=== PATIENT | male | born 1960 | race Caucasian/White ===

== ENCOUNTER 2017-01-14 07:03 | Emergency (ER) | payer BC ==
[2017-01-14] MEDS ORDERED: Sodium Chloride 0.9% 1,000 ML IV ONE (07:33)
[2017-01-14] MEDS ORDERED: Sodium Chloride 0.9% 10 ML Syringe FLUSH PRN (07:34)
[2017-01-14] MEDS ORDERED: Sodium Chloride 0.9% 2.5 ML Syringe FLUSH PRN (07:34)
[2017-01-14] MEDS ORDERED: Nitroglycerin 0.4 MG Tab.SL SL PRN ×2 (07:35→08:00)
--- NOTE | 2017-01-14 07:36 | EDM.PDOC ---
ED HPI GI/ABDOMINAL - General Chief Complaint: Abdominal Pain Stated Complaint: CHEST PAINS Time Seen by Provider: 01/14/17 07:46 Source of Information: Reports: Patient History Limitations: Reports: No limitations - History of Present Illness INITIAL COMMENTS - FREE TEXT/NARRATIVE: History of present illness: [] At 6:00 this morning patient took his normal morning meds and started having severe epigastric pain is described as pressure and radiating to his chest. He denies any shortness of breath, dizziness, sweating, coughing, nausea or vomiting. The pain is constant and slowly subsiding. Review of systems: As per history of present illness and below otherwise all systems reviewed and negative. Past medical history: As per history of present illness and as reviewed below otherwise noncontributory. Surgical history: As per history of present illness and as reviewed below otherwise noncontributory. Social history: No reported history of drug or alcohol abuse. Family history: As per history of present illness and as reviewed below otherwise noncontributory. Physical exam: General: Well developed, well nourished in NAD HEENT: Atraumatic, normocephalic, pupils reactive, negative for conjunctival pallor or scleral icterus, mucous membranes moist, throat clear, neck supple, nontender, trachea midline. Lungs: Clear to auscultation, breath sounds equal bilaterally, chest nontender. Heart: S1S2, regular, negative for clicks, rubs, or JVD. Abdomen: Soft, nondistended, nontender. Negative for masses or hepatosplenomegaly. Negative for costovertebral tenderness. Pelvis: Stable nontender. Genitourinary: Deferred. Rectal: Deferred. Extremities: Atraumatic, negative for cords or calf pain. Neurovascular unremarkable. Neuro: Awake, alert, oriented. Cranial nerves II through XII unremarkable. Cerebellum unremarkable. Motor and sensory unremarkable throughout. Exam nonfocal. Diagnostics: [] Labs and x-rays were checked which were all negative. Therapeutics: [] 2 is given nitroglycerin with minimal relief and a GI cocktail which alleviated all his pain Impression: [] Esophageal spasm Plan: [] Maalox for pain, followup PMD Definitive disposition and diagnosis as appropriate pending reevaluation and review of above. - Related Data Allergies/ADRs: Allergies Allergy/AdvReac Type Severity Reaction Status Date / Time No Known Allergies Allergy Verified 01/14/17 07:12 Home Meds: Home Meds Aspirin [Halfprin] 81 mg PO ONETIME 01/14/17 [History] Naloxegol Oxalate [Movantik] 25 mg PO DAILY 01/14/17 [History] Omeprazole 20 mg PO BIDAC 01/14/17 [History] Pravastatin [Pravachol] 20 mg PO DAILY 01/14/17 [History] Pregabalin [Lyrica] 150 mg PO BID 01/14/17 [History] Sertraline HCl 0.4 mg PO BEDTIME 01/14/17 [History] Tamsulosin [Flomax] 0.4 mg PO ONETIME 01/14/17 [History] Warfarin [Coumadin] 2.5 mg PO DAILY 01/14/17 [History] oxyCODONE 10 mg PO Q6HR PRN 01/14/17 [History] oxyCODONE HCl [Oxycontin] 15 mg PO BID 01/14/17 [History] tiZANidine [Zanaflex] 4 mg PO DAILY PRN 01/14/17 [History] Past Medical History Cardiovascular History: Reports: Heart valve replacement Gastrointestinal History: Reports: GERD Musculoskeletal History: Reports: Back pain, chronic - Past Surgical History HEENT Surgical History: Reports: Tonsillectomy Cardiovascular Surgical History: Reports: Valve replacement Musculoskeletal Surgical History: Reports: Other (see below) Other Musculoskeletal Surgeries/Procedures:: back and neck fusion Social & Family History - Family History Family Medical History: Noncontributory - Tobacco Use Smoking Status *Q: Never Smoker Years of Tobacco use: 25 Packs/Tins Daily: 1 Used Tobacco, but Quit: Yes Month Tobacco Last Used: 2007 Second Hand Smoke Exposure: No - Caffeine Use Caffeine Use: Reports: None - Alcohol Use Days Per Week of Alcohol Use: 0 - Recreational Drug Use Recreational Drug Use: No ED ROS GENERAL - Review of Systems Review Of Systems: See Below (See history of present illness) ED EXAM, GI/ABD - Physical Exam Exam: See Below (The history of present illness) Course - Vital Signs Last Recorded V/S: Last Vital Signs Temp 36.4 C 01/14/17 09:11 Pulse 60 01/14/17 09:11 Resp 18 01/14/17 09:11 BP 148/68 H 01/14/17 09:11 Pulse Ox 97 01/14/17 09:11 - Orders/Labs/Meds Orders: Active Orders 24 hr Category Date Time Status EKG 12 Lead [EKG Documentation Completion] [RC] STAT Care 01/14/17 08:12 Active Sodium Chloride 0.9% [Saline Flush] Med 01/14/17 07:34 Active 10 ml FLUSH ASDIRECTED PRN Sodium Chloride 0.9% [Saline Flush] Med 01/14/17 07:34 Active 2.5 ml FLUSH ASDIRECTED PRN Peripheral IV Insertion Adult [OM.PC] Stat Oth 01/14/17 07:35 Ordered Medication Orders Sodium Chloride (Saline Flush) 10 ml FLUSH ASDIRECTED PRN PRN Reason: Keep Vein Open Sodium Chloride (Saline Flush) 2.5 ml FLUSH ASDIRECTED PRN PRN Reason: Keep Vein Open Labs: Laboratory Tests 01/14/17 01/14/17 01/14/17 Range/Units 07:48 07:48 07:48 WBC 4.75 (4.0-11.0) K/uL RBC 3.90 L (4.50-5.90) M/uL Hgb 12.2 L (13.0-17.0) g/dL Hct 36.3 L (38.0-50.0) % MCV 93.1 (80.0-98.0) fL MCH 31.3 (27.0-32.0) pg MCHC 33.6 (31.0-37.0) g/dL RDW Std Deviation 43.3 (28.0-62.0) fl RDW Coeff of Chapin 13 (11.0-15.0) % Plt Count 179 (150-400) K/uL MPV 9.60 (7.40-12.00) fL Neut % (Auto) 51.2 (48.0-80.0) % Lymph % (Auto) 33.9 (16.0-40.0) % [place] % (Auto) 10.7 (0.0-15.0) % Eos % (Auto) 3.8 (0.0-7.0) % Baso % (Auto) 0.4 (0.0-1.5) % Neut # 2.4 (1.4-5.7) K/uL Lymph # 1.6 (0.6-2.4) K/uL [place] # 0.5 (0.0-0.8) K/uL Eos # 0.2 (0.0-0.7) K/uL Baso # 0.0 (0.0-0.1) K/uL Nucleated RBC % 0.0 /100WBC Nucleated RBCs # 0 K/uL INR (0.86-1.11) Sodium 141 (136-146) mmol/L Potassium 4.2 (3.5-5.1) mmol/L Chloride 107 (98-110) mmol/L Carbon Dioxide 26 (21-31) mmol/L BUN 13 (6.0-23.0) mg/dL Creatinine 1.0 (0.6-1.5) mg/dL Est Cr Clr Drug Dosing 82.48 mL/min Estimated GFR (MDRD) > 60.0 ml/min Glucose 98 (60-110) mg/dL Calcium 9.4 (8.8-10.8) mg/dL Total Bilirubin 0.4 (0.1-1.5) mg/dL AST 22 (5-40) IU/L ALT 18 (8-54) IU/L Alkaline Phosphatase 84 (40-150) Troponin I < 0.10 (0.0-0.29) NG/ML Total Protein 6.6 (6.0-8.0) g/dL Albumin 4.0 (3.5-5.0) g/dL Globulin 2.6 (2.0-3.5) g/dL Albumin/Globulin Ratio 1.5 (1.3-2.8) Lipase 16 (7-80) U/L Urine Color Urine Appearance Urine pH (5.0-8.0) Ur Specific [place] (1.001-1.035) Urine Protein (NEGATIVE) mg/dL Urine Glucose (UA) (NEGATIVE) mg/dL Urine Ketones (NEGATIVE) mg/dL Urine Occult Blood (NEGATIVE) Urine Nitrite (NEGATIVE) Urine Bilirubin (NEGATIVE) Urine Urobilinogen (<2.0) EU/dL Ur Leukocyte Esterase (NEGATIVE) Urine RBC (0-2/HPF) Urine WBC (0-5/HPF) Ur Epithelial Cells (NONE-FEW) Urine Bacteria (NEGATIVE) 01/14/17 01/14/17 Range/Units 07:48 08:25 WBC (4.0-11.0) K/uL RBC (4.50-5.90) M/uL Hgb (13.0-17.0) g/dL Hct (38.0-50.0) % MCV (80.0-98.0) fL MCH (27.0-32.0) pg MCHC (31.0-37.0) g/dL RDW Std Deviation (28.0-62.0) fl RDW Coeff of Chapin (11.0-15.0) % Plt Count (150-400) K/uL MPV (7.40-12.00) fL Neut % (Auto) (48.0-80.0) % Lymph % (Auto) (16.0-40.0) % [place] % (Auto) (0.0-15.0) % Eos % (Auto) (0.0-7.0) % Baso % (Auto) (0.0-1.5) % Neut # (1.4-5.7) K/uL Lymph # (0.6-2.4) K/uL School[place] # (0.0-0.8) K/uL Eos # (0.0-0.7) K/uL Baso # (0.0-0.1) K/uL Nucleated RBC % /100WBC Nucleated RBCs # K/uL INR 2.20 H (0.86-1.11) Sodium (136-146) mmol/L Potassium (3.5-5.1) mmol/L Chloride (98-110) mmol/L Carbon Dioxide (21-31) mmol/L BUN (6.0-23.0) mg/dL Creatinine (0.6-1.5) mg/dL Est Cr Clr Drug Dosing mL/min Estimated GFR (MDRD) ml/min Glucose (60-110) mg/dL Calcium (8.8-10.8) mg/dL Total Bilirubin (0.1-1.5) mg/dL AST (5-40) IU/L ALT (8-54) IU/L Alkaline Phosphatase (40-150) Troponin I (0.0-0.29) NG/ML Total Protein (6.0-8.0) g/dL Albumin (3.5-5.0) g/dL Globulin (2.0-3.5) g/dL Albumin/Globulin Ratio (1.3-2.8) Lipase (7-80) U/L Urine Color YELLOW Urine Appearance CLEAR Urine pH 5.5 (5.0-8.0) Ur Specific [place] 1.010 (1.001-1.035) Urine Protein NEGATIVE (NEGATIVE) mg/dL Urine Glucose (UA) NEGATIVE (NEGATIVE) mg/dL Urine Ketones NEGATIVE (NEGATIVE) mg/dL Urine Occult Blood TRACE-LYSED (NEGATIVE) Urine Nitrite NEGATIVE (NEGATIVE) Urine Bilirubin NEGATIVE (NEGATIVE) Urine Urobilinogen 0.2 (<2.0) EU/dL Ur Leukocyte Esterase NEGATIVE (NEGATIVE) Urine RBC 0-2 (0-2/HPF) Urine WBC 0-2 (0-5/HPF) Ur Epithelial Cells RARE (NONE-FEW) Urine Bacteria RARE (NEGATIVE) Meds: Medications Generic Name Dose Route Start Last Admin Trade Name Freq PRN Reason Stop Dose Admin Sodium Chloride 10 ml 01/14/17 07:34 Saline Flush FLUSH ASDIRECTED PRN Keep Vein Open Sodium Chloride 2.5 ml 01/14/17 07:34 Saline Flush FLUSH ASDIRECTED PRN Keep Vein Open Discontinued Medications Generic Name Dose Route Start Last Admin Trade Name Freq PRN Reason Stop Dose Admin Al Hydroxide/Mg Hydroxide 15 0 ml 01/14/17 08:58 01/14/17 09:04 ml/ Lidocaine HCl 5 ml PO 01/14/17 08:59 1 each ONETIME ONE Administration Sodium Chloride 1,000 mls @ 999 mls/hr 01/14/17 07:33 01/14/17 07:55 Normal Saline IV 01/14/17 08:33 999 mls/hr .Bolus ONE Administration Nitroglycerin 0.4 mg 01/14/17 07:35 01/14/17 08:02 Nitrostat SL 01/14/17 07:46 0.4 mg Q5M PRN Administration Chest Pain Nitroglycerin 0.4 mg 01/14/17 08:00 Nitrostat SL 01/14/17 08:11 Q5M PRN Chest Pain Departure - Departure Time of Disposition: 09:28 Disposition: Home, Self-Care 01 Condition: good Clinical Impression: Esophageal spasm Instructions: Esophageal Spasm Referrals: [facility] [Outside] Duarte Gonzalez MD [Primary Care Provider] - Forms: ED Department Discharge Additional Instructions: The following information is given to patients seen in the emergency department who are being discharged to home. This information is to outline your options for follow-up care. We provide all patients seen in our emergency department with a follow-up referral. The need for follow-up, as well as the timing and circumstances, are variable depending upon the specifics of your emergency department visit. If you don't have a primary care physician on staff, we will provide you with a referral. We always advise you to contact your personal physician following an emergency department visit to inform them of the circumstance of the visit and for follow-up with them and/or the need for any referrals to a consulting specialist. The emergency department will also refer you to a specialist when appropriate. This referral assures that you have the opportunity for follow-up care with a specialist. All of these measure are taken in an effort to provide you with optimal care, which includes your follow-up. Under all circumstances we always encourage you to contact your private physician who remains a resource for coordinating your care. When calling for follow-up care, please make the office aware that this follow-up is from your recent emergency room visit. If for any reason you are refused follow-up, please contact the [facility] Emergency Department at and asked to speak to the emergency department charge nurse. [facility] [address] [place] [id number] - My Orders Last 24 Hours: My Active Orders 01/14/17 07:34 Sodium Chloride 0.9% [Saline Flush] 10 ml FLUSH ASDIRECTED PRN Sodium Chloride 0.9% [Saline Flush] 2.5 ml FLUSH ASDIRECTED PRN 01/14/17 07:35 Peripheral IV Insertion Adult [OM.PC] Stat 01/14/17 08:12 EKG 12 Lead [EKG Documentation Completion] [RC] STAT - Assessment/Plan Last 24 Hours: My Active Orders 01/14/17 07:34 Sodium Chloride 0.9% [Saline Flush] 10 ml FLUSH ASDIRECTED PRN Sodium Chloride 0.9% [Saline Flush] 2.5 ml FLUSH ASDIRECTED PRN 01/14/17 07:35 Peripheral IV Insertion Adult [OM.PC] Stat 01/14/17 08:12 EKG 12 Lead [EKG Documentation Completion] [RC] STAT
[2017-01-14 08:29] LABS: CHLORIDE,CL 107 mmol/L (98-110); SODIUM,NA 141 mmol/L (136-146)
--- NOTE | 2017-01-14 08:40 | CR ---
EXAMINATION: Two-view chest (PA and Lateral views). HISTORY: Shortness of breath. FINDINGS: The trachea is midline. The cardiomediastinal silhouette is within normal limits. No pulmonary infil trates, effusions or pneumothorax. Mild hyperinflation and interstitial prominence. Median sternotom y wires are noted with evidence of valvular replacement.. Osseous structures appear unremarkable. IMPRESSION: No acute cardiopulmonary process.
[2017-01-14] MEDS ORDERED: Alum Hydrox/Mag Hydrox/Simeth 15 ML, Lidocaine 2% 5 ML PO ONE ×2 (08:58)
[2017-01-14 09:57] VITALS: BP 137/61
== END 2017-01-14 09:45 | disposition home or self-care (01) ==
LOC: MW.ED 07:03
DX: K22.4 Dyskinesia of esophagus (principal); K21.9 Gastro-esophageal reflux disease without esophagitis; Z95.2 Presence of prosthetic heart valve; Z98.890 Other specified postprocedural states; Z98.1 Arthrodesis status; Z79.01 Long term (current) use of anticoagulants; Z79.899 Other long term (current) drug therapy; Z87.891 Personal history of nicotine dependence
CPT/HCPCS: 36415; 71020; 80053; 81001; 83690; 84484; 85025; 85610; 93005; 96360; 99284; A9270; J7040; 99283

== ENCOUNTER 2017-01-24 14:00 | Emergency (ER) | payer BC ==
--- NOTE | 2017-01-24 15:39 | EDM.PDOC ---
ED HPI Skin/Rash - General Chief Complaint: Laceration Stated Complaint: PT NEED STITCHES Time Seen by Provider: 01/24/17 15:36 Source: Reports: Patient History Limitations: Reports: No limitations - History of Present Illness INITIAL COMMENTS - FREE TEXT/NARRATIVE: HISTORY AND PHYSICAL: [56-year-old male presenting with laceration left thumb] History of Present Illness: [Incident occurred just prior to coming in does not remember when his last tetanus injection] Review of Systems: As per history of present illness and below otherwise all systems reviewed and negative. Past medical history: As per history of present illness and as reviewed below otherwise noncontributory. Surgical history: As per history of present illness and as reviewed below otherwise noncontributory. Social history: No reported history of drug or alcohol abuse. Family history: As per history of present illness and as reviewed below otherwise noncontributory. Physical exam: Alert and oriented male speaking in full sentences HEENT: Atraumatic, normocehpalic, pupils reactive, negative for conjunctival pallor or scleral icterus, mucous membranes moist, throat clear, neck supple, nontender, trachea midline. Lungs: Clear to auscultation, breath sounds equal bilaterally, chest non tender. Heart: S1S2, regular, negative for clicks, rubs, or JVD. Extremities:, negative for cords or calf pain. Laceration to left thumb pad Neurovascular unremarkable. Neuro: Awake, alert, oriented. Cranial nerves II through XII unremarkable. Cerebellum unremarkable. Motor and sensory unremarkable throughout. Exam nonfocal. Diagnostics: [] Therapeutics: [Sutures] Impression: [Laceration with sutures repaired] Plan: [Home keep clean and dry Sutures out in 7 days Tetanus injection] Definitive disposition and diagnosis as appropriate pending reevaluation and review of above. Timing: Reports: still present Location, Skin: Reports: upper extremity, left - Related Data Allergies Allergy/AdvReac Type Severity Reaction Status Date / Time No Known Allergies Allergy Verified 01/24/17 15:05 Home Meds: Ambulatory Orders Medication Instructions Recorded Confirmed Aspirin [Halfprin] 81 mg PO DAILY 01/14/17 01/24/17 Omeprazole 20 mg PO BIDAC 01/14/17 01/24/17 Pravastatin [Pravachol] 20 mg PO BEDTIME 01/14/17 01/24/17 Pregabalin [Lyrica] 150 mg PO BID 01/14/17 01/24/17 Sertraline HCl 100 mg PO DAILY 01/14/17 01/24/17 Tamsulosin [Flomax] 0.4 mg PO ONETIME 01/14/17 01/24/17 Warfarin [Coumadin] 2.5 mg PO DAILY 01/14/17 01/24/17 oxyCODONE HCl [Oxycontin] 15 mg PO BID 01/14/17 01/24/17 tiZANidine [Zanaflex] 1 mg PO DAILY PRN 01/14/17 01/24/17 Aspirin/Acetaminophen/Caffeine 1 each PO DAILY PRN 01/24/17 01/24/17 [Mone Migraine Formula Caplet] Cholecalciferol (Vitamin D3) 5,000 unit PO DAILY 01/24/17 01/24/17 [Vitamin D3] Fluticasone Propionate 1 spray NS QPM 01/24/17 01/24/17 oxyCODONE HCl/Acetaminophen 1 each PO Q4H PRN 01/24/17 01/24/17 [Endocet 10-325 mg Tablet] Past Medical History Cardiovascular History: Reports: Heart valve replacement Gastrointestinal History: Reports: GERD Genitourinary History: Reports: BPH Musculoskeletal History: Reports: Back pain, chronic - Past Surgical History HEENT Surgical History: Reports: Tonsillectomy Cardiovascular Surgical History: Reports: Coronary artery bypass, Valve replacement GI Surgical History: Reports: Hernia, inguinal, Hernia repair/other Neurological Surgical History: Reports: Spinal fusion Musculoskeletal Surgical History: Reports: Other (see below) Other Musculoskeletal Surgeries/Procedures:: back and neck fusion Social & Family History - Family History Family Medical History: Noncontributory - Tobacco Use Smoking Status *Q: Never Smoker Years of Tobacco use: 25 Packs/Tins Daily: 1 Used Tobacco, but Quit: Yes Month Tobacco Last Used: 2007 Second Hand Smoke Exposure: No - Caffeine Use Caffeine Use: Reports: None - Alcohol Use Days Per Week of Alcohol Use: 0 - Recreational Drug Use Recreational Drug Use: No ED ROS GENERAL - Review of Systems Review Of Systems: ROS reveals no pertinent complaints other than HPI. ED EXAM, SKIN/RASH Exam: See Below (See dictation) ED SKIN PROCEDURES - Laceration/Wound Repair Left Posterior Medial Finger Lac/wound length in cm: 3 Appearance: subcutaneous, clean Distal NVT: neuro & vascular intact, no tendon injury Anesthetic type: local Local anesthesia - Lidocaine (Xylocaine): 1% plain Local anesthetic volume: 4cc Skin prep: saline Exploration/Debridement/Repair: wound explored, in a bloodless field, explored to base Suture size: 4-0 # of sutures: 7 Suture type: nylon, interrupted Drain placement: No Sterile dressing applied: nurse Tetanus status addressed: Yes Complications: No Course - Vital Signs Last Recorded V/S: Last Vital Signs Temp 36.7 C 01/24/17 15:05 Pulse 78 01/24/17 15:05 Resp 18 01/24/17 15:05 BP 142/79 H 01/24/17 15:05 Pulse Ox 96 01/24/17 15:05 - Orders/Labs/Meds Orders: Active Orders 24 hr Category Date Time Status Vaccines to be Administered [RC] PER UNIT ROUTINE Care 01/24/17 15:17 Active Meds: Medications Discontinued Medications Generic Name Dose Route Start Last Admin Trade Name Herreraq PRN Reason Stop Dose Admin Bacitracin 1 dose 01/24/17 14:49 Bacitracin Oint 1 Gm TOP 01/24/17 14:50 ONETIME ONE Diphtheria/Tetanus/Acell Pertussis 0.5 ml 01/24/17 15:17 Adacel IM 01/24/17 15:18 .ONCE ONE Lidocaine HCl 20 ml 01/24/17 14:49 Xylocaine 1% INJECT 01/24/17 14:50 ONETIME ONE Departure - Departure Time of Disposition: 15:39 Disposition: Home, Self-Care 01 Condition: good Clinical Impression: Laceration Instructions: Stitches, Twila, or Adhesive Wound Closure, [id number], Laceration Care, Adult, [id number] Forms: ED Department Discharge Additional Instructions: The following information is given to patients seen in the emergency department who are being discharged to home. This information is to outline your options for follow-up care. We provide all patients seen in our emergency department with a follow-up referral. The need for follow-up, as well as the timing and circumstances, are variable depending upon the specifics of your emergency department visit. If you don't have a primary care physician on staff, we will provide you with a referral. We always advise you to contact your personal physician following an emergency department visit to inform them of the circumstance of the visit and for follow-up with them and/or the need for any referrals to a consulting specialist. The emergency department will also refer you to a specialist when appropriate. This referral assures that you have the opportunity for followup care with a specialist. All of these measure are taken in an effort to provide you with optimal care, which includes your followup. Under all circumstances we always encourage you to contact your private physician who remains a resource for coordinating your care. When calling for followup care, please make the office aware that this follow-up is from your recent emergency room visit. If for any reason you are refused follow-up, please contact the [facility] emergency department at and asked to speak to the emergency department charge nurse. Tylenol for discomfort Keep wound. Clean and dry Sutures out in 7 days Signs of infection include heat swelling pustular material, please be seen immediately - My Orders Last 24 Hours: My Active Orders 01/24/17 15:17 Vaccines to be Administered [RC] PER UNIT ROUTINE - Assessment/Plan Last 24 Hours: My Active Orders 01/24/17 15:17 Vaccines to be Administered [RC] PER UNIT ROUTINE
[2017-01-24] MEDS: Diphtheria,Pertussis(Acell),Tetanus Vaccine 0.5 ML Syringe IM ONE (16:08)
[2017-01-24] MEDS: Bacitracin Oint 1 GM U/D Packet TOP ONE (16:09)
[2017-01-24] MEDS: Lidocaine 1% 20 ML MDV INJECT ONE (16:17)
[2017-01-24 16:39] VITALS: BP 142/68
== END 2017-01-24 16:14 | disposition home or self-care (01) ==
LOC: MW.ED 14:00
DX: S61.012A Laceration without foreign body of left thumb without damage to nail, initial encounter (principal); Z79.82 Long term (current) use of aspirin; Z79.899 Other long term (current) drug therapy; K21.9 Gastro-esophageal reflux disease without esophagitis; Z95.1 Presence of aortocoronary bypass graft; Z98.890 Other specified postprocedural states; Z23 Encounter for immunization; W45.8XXA Other foreign body or object entering through skin, initial encounter
CPT/HCPCS: 12002; 90471; 90715; 99282; 99282-25

== ENCOUNTER 2017-08-23 18:49 | Emergency (ER) | payer BC ==
[2017-08-23] MEDS ORDERED: Bacitracin Oint 1 GM U/D Packet TOP ONE (19:37)
--- NOTE | 2017-08-23 19:44 | EDM.PDOC ---
ED HPI GENERAL MEDICAL PROBLEM - General Chief Complaint: Laceration Stated Complaint: PT CUT LT INDEX FINGER Time Seen by Provider: 08/23/17 19:33 - History of Present Illness INITIAL COMMENTS - FREE TEXT/NARRATIVE: HISTORY AND PHYSICAL: History of present illness: The patient is a 56-year-old male who presents with a superficial laceration to his left index finger which would not stop bleeding and he is on Coumadin so he was concerned. Patient takes Coumadin for a mechanical valve. Patient is right- hand dominant and his last tetanus shot per the computer was January 2017. Patient says he did not think it was very deep but because of the persistent bleeding he came here for evaluation. He has no inability to flex and extend the finger and has no pain to the area. Review of systems: As per history of present illness and below otherwise all systems reviewed and negative. Past medical history: As per history of present illness and as reviewed below otherwise noncontributory. Surgical history: As per history of present illness and as reviewed below otherwise noncontributory. Social history: No reported history of drug or alcohol abuse. Family history: As per history of present illness and as reviewed below otherwise noncontributory. Physical exam: HEENT: Atraumatic, normocephalic, negative for conjunctival pallor or scleral icterus, mucous membranes moist, throat clear, neck supple, nontender, trachea midline. Lungs: Clear to auscultation, breath sounds equal bilaterally, chest nontender. Heart: S1S2, regular rate and rhythm and obvious prosthetic valve murmur appreciated Abdomen: Soft, nondistended, nontender. NABS Pelvis: Deferred Genitourinary: Deferred. Rectal: Deferred. Extremities: Atraumatic with full range of motion of all extremities with the exception of the left index finger where there is a 1.5 cm superficial laceration noted on the radial aspect of the left index finger which is exhibiting no bleeding swelling or redness. Patient has full range of motion including flexion and extension and neurovascular otherwise is intact in the finger. There are no other injuries seen on this hand or fingers., negative for cords or calf pain. Neurovascular unremarkable. Neuro: Awake, alert, oriented. Cranial nerves II through XII unremarkable. Cerebellum unremarkable. Motor and sensory unremarkable throughout. Exam nonfocal. Diagnostics: [] Therapeutics: Wound care bacitracin tube gauze Impression: Superficial laceration of left index finger Definitive disposition and diagnosis as appropriate pending reevaluation and review of above. left index Pain Score (Numeric/FACES): 1 - Related Data Allergies Allergy/AdvReac Type Severity Reaction Status Date / Time No Known Allergies Allergy Verified 08/23/17 19:10 Home Meds: Home Meds Aspirin [Halfprin] 81 mg PO DAILY 01/14/17 [History] Omeprazole 20 mg PO BIDAC 01/14/17 [History] Pravastatin [Pravachol] 20 mg PO BEDTIME 01/14/17 [History] Pregabalin [Lyrica] 150 mg PO BID 01/14/17 [History] Sertraline HCl 100 mg PO DAILY 01/14/17 [History] Tamsulosin [Flomax] 0.4 mg PO ONETIME 01/14/17 [History] Warfarin [Coumadin] 2.5 mg PO DAILY 01/14/17 [History] oxyCODONE HCl [Oxycontin] 15 mg PO BID 01/14/17 [History] tiZANidine [Zanaflex] 1 mg PO DAILY PRN 01/14/17 [History] Aspirin/Acetaminophen/Caffeine [Mone Migraine Formula Caplet] 1 each PO DAILY PRN 01/24/17 [History] Cholecalciferol (Vitamin D3) [Vitamin D3] 5,000 unit PO DAILY 01/24/17 [History] Fluticasone Propionate 1 spray NS QPM 01/24/17 [History] oxyCODONE HCl/Acetaminophen [Endocet 10-325 mg Tablet] 1 each PO Q4H PRN [History] Past Medical History HEENT History: Reports: None Cardiovascular History: Reports: Heart Valve Replacement Respiratory History: Reports: None Gastrointestinal History: Reports: GERD Genitourinary History: Reports: None Musculoskeletal History: Reports: Back Pain, Chronic Neurological History: Reports: None Psychiatric History: Reports: None Endocrine/Metabolic History: Reports: None Hematologic History: Reports: None Immunologic History: Reports: None Oncologic (Cancer) History: Reports: None Dermatologic History: Reports: None - Infectious Disease History Infectious Disease History: Reports: Chicken Pox, Measles, Mumps - Past Surgical History Head Surgeries/Procedures: Reports: None HEENT Surgical History: Reports: Tonsillectomy Cardiovascular Surgical History: Reports: Coronary Artery Bypass, Valve Replacement GI Surgical History: Reports: None Neurological Surgical History: Reports: Spinal Fusion Musculoskeletal Surgical History: Reports: Other (See Below) Other Musculoskeletal Surgeries/Procedures:: back surgery Social & Family History - Family History Family Medical History: Noncontributory - Tobacco Use Smoking Status *Q: Never Smoker Years of Tobacco use: 25 Packs/Tins Daily: 1 Used Tobacco, but Quit: Yes Month Tobacco Last Used: 2007 Second Hand Smoke Exposure: No - Caffeine Use Caffeine Use: Reports: Soda - Alcohol Use Days Per Week of Alcohol Use: 0 - Recreational Drug Use Recreational Drug Use: No ED ROS GENERAL - Review of Systems Review Of Systems: ROS reveals no pertinent complaints other than HPI. ED EXAM, SKIN/RASH Exam: See Below (See dictation) Course - Vital Signs Last Recorded V/S: Last Vital Signs Temp 36.1 C 08/23/17 19:11 Pulse 60 08/23/17 19:11 Resp 18 08/23/17 19:11 BP 122/80 08/23/17 19:11 Pulse Ox 98 08/23/17 19:11 - Orders/Labs/Meds Orders: Active Orders 24 hr Category Date Time Status Communication Order [RC] STAT Care 08/23/17 19:39 Ordered Bacitracin [Bacitracin Oint 1 GM] Med 08/23/17 19:37 Once 1 dose TOP ONETIME ONE Medication Orders Bacitracin (Bacitracin Oint 1 Gm) 1 dose TOP ONETIME ONE Stop: 08/23/17 19:38 Meds: Medications Generic Name Dose Route Start Last Admin Trade Name Herreraq PRN Reason Stop Dose Admin Bacitracin 1 dose 08/23/17 19:37 Bacitracin Oint 1 Gm TOP 08/23/17 19:38 ONETIME ONE Departure - Departure Time of Disposition: 19:43 Disposition: Home, Self-Care 01 Condition: Good Clinical Impression: Finger laceration Qualifiers: Encounter type: initial encounter Finger: index finger Damage to nail status: without damage Foreign body presence: without foreign body Laterality: left Qualified Code(s): S61.211A - Laceration without foreign body of left index finger without damage to nail, initial encounter - Discharge Information Referrals: PCP,None [Primary Care Provider] - Additional Instructions: The following information is given to patients seen in the emergency department who are being discharged to home. This information is to outline your options for follow-up care. We provide all patients seen in our emergency department with a follow-up referral. The need for follow-up, as well as the timing and circumstances, are variable depending upon the specifics of your emergency department visit. If you don't have a primary care physician on staff, we will provide you with a referral. We always advise you to contact your personal physician following an emergency department visit to inform them of the circumstance of the visit and for follow-up with them and/or the need for any referrals to a consulting specialist. The emergency department will also refer you to a specialist when appropriate. This referral assures that you have the opportunity for followup care with a specialist. All of these measure are taken in an effort to provide you with optimal care, which includes your followup. Under all circumstances we always encourage you to contact your private physician who remains a resource for coordinating your care. When calling for followup care, please make the office aware that this follow-up is from your recent emergency room visit. If for any reason you are refused follow-up, please contact the [facility] emergency department at and ask to speak to the emergency department charge nurse. [facility] Primary care- [place] [address] Please keep dressing was placed here in the ED tonight on until Saturday night. Remove and cleanse with mild soap and water pat dry and apply bacitracin or Neosporin. The ointment after 2 days. Try to leave open to air as much as possible and only cover with gauze if you need to do not use Band-Aids. Please call and follow-up with your provider in the clinic in the next few days for reevaluation and further care and return to the ER as needed and as discussed - My Orders Last 24 Hours: My Active Orders 08/23/17 19:37 Bacitracin [Bacitracin Oint 1 GM] 1 dose TOP ONETIME ONE 08/23/17 19:39 Communication Order [RC] STAT - Assessment/Plan Last 24 Hours: My Active Orders 08/23/17 19:37 Bacitracin [Bacitracin Oint 1 GM] 1 dose TOP ONETIME ONE 08/23/17 19:39 Communication Order [RC] STAT
[2017-08-23 19:57] VITALS: BP 127/63
== END 2017-08-23 19:55 | disposition home or self-care (01) ==
LOC: MW.ED 18:49
DX: S61.211A Laceration without foreign body of left index finger without damage to nail, initial encounter (principal); K21.9 Gastro-esophageal reflux disease without esophagitis; Z79.82 Long term (current) use of aspirin; Z79.899 Other long term (current) drug therapy; X58.XXXA Exposure to other specified factors, initial encounter
CPT/HCPCS: 99283

== ENCOUNTER 2019-09-02 16:36 | Inpatient (IN) | payer BC, OTHER ==
[2019-09-02] MEDS ORDERED: Sodium Chloride 0.9% 2.5 ML Syringe FLUSH PRN (16:51)
[2019-09-02] MEDS ORDERED: Sodium Chloride 0.9% 10 ML Syringe FLUSH PRN (16:51)
[2019-09-02] MEDS ORDERED: HYDROmorphone 1 MG/ML Syringe IVPUSH ONE ×2 (16:51→21:41)
--- NOTE | 2019-09-02 16:51 | EDM.PDOC ---
ED HPI GENERAL MEDICAL PROBLEM - General Chief Complaint: Back Pain or Injury Stated Complaint: BACK PAIN Time Seen by Provider: 09/02/19 16:51 Source of Information: Reports: Patient History Limitations: Reports: No Limitations - History of Present Illness INITIAL COMMENTS - FREE TEXT/NARRATIVE: HISTORY AND PHYSICAL: History of present illness: Patient is a 58-year-old male presents to the ED with complaint of low back pain. Patient had a lumbar fusion by Dr. Keith at [facility] in [place] 2.5 weeks ago. He states he has been having some low back pain with radiation in to the right leg since then, was told it was the nerves irritated and given steroids. He was doing okay with this and took his last dose of steroids this morning. He states he was still having some back pain so he follow up with Dr. Gonzalez this afternoon. He states shortly after leaving his office he suddenly developed severe low back pain and numbness of his right leg. He states he can not feel his leg at all. He denies bowel or bladder incontinence, fevers, chills. Review of systems: As per history of present illness and below otherwise all systems reviewed and negative. Past medical history: As per history of present illness and as reviewed below otherwise noncontributory. Surgical history: As per history of present illness and as reviewed below otherwise noncontributory. Social history: No reported history of drug or alcohol abuse. Family history: As per history of present illness and as reviewed below otherwise noncontributory. Physical exam: General: Patient sitting comfortably in no acute distress and nontoxic appearing. Patient is writhing in pain on initial examination. HEENT: Atraumatic, normocephalic, pupils reactive, negative for conjunctival pallor or scleral icterus, mucous membranes moist, throat clear, neck supple, nontender, trachea midline. No meningeal signs. Lungs: Clear to auscultation, breath sounds equal bilaterally, chest nontender. Heart: S1S2, regular, negative for clicks, rubs, or overt murmur. Abdomen: Soft, nondistended, nontender. Negative for masses or hepatosplenomegaly. Negative for costovertebral tenderness. No rigidity, rebound , guarding. Pelvis: Stable nontender. Genitourinary: Deferred. Rectal: Normal rectal tone Extremities: Atraumatic, negative for cords or calf pain. Neurovascular unremarkable. Neuro: Awake, alert, oriented. Cranial nerves II through XII unremarkable. Cerebellum unremarkable. Exam nonfocal. Sensory diminished on the right lower extremity. Strength 4/5 on the right and 5/5 left lower extremity. Notes: Discussed with GAVIOTA Chapman with Dr. Keith's practice, he was informed of all lab testing and CT results as well as exam and has no concern for infection or bleed. He did advise pain control as well as another medrol dosepak and follow up with Dr. Keith at his appointment on 09/23 or may travel to [place] sooner if patient desires. On re-evaluation patient states he is no longer having numbness in the lower extremity and strength is 5/5 bilaterally with normal sensation. Patient's pain improved from 10/10 to 5/10. We discussed admitting for pain management vs discharge home with pain medications. Patient is requesting admission at this time. Diagnostics: CBC, CMP, ESR, CRP, CT lumbar spine Therapeutics: 2mg Dilaudid IV 60mg Norflex IM Prescriptions: Impression: Lumbar back pain s/p lumbar fusion Plan: Discussed with Dr. Sawyer, patient will be admitted to observation for post operative pain management Definitive disposition and diagnosis as appropriate pending reevaluation and review of above. back Pain Score (Numeric/FACES): 9 - Related Data Allergies Allergy/AdvReac Type Severity Reaction Status Date / Time No Known Allergies Allergy Verified 09/02/19 16:50 Home Meds: Home Meds Aspirin [Halfprin] 81 mg PO DAILY 01/14/17 [History] Omeprazole 20 mg PO BIDAC 01/14/17 [History] Sertraline HCl 100 mg PO DAILY 01/14/17 [History] Tamsulosin [Flomax] 0.4 mg PO ONETIME 01/14/17 [History] Warfarin [Coumadin] 2.5 mg PO DAILY 01/14/17 [History] oxyCODONE HCl [Oxycontin] 15 mg PO BID 01/14/17 [History] tiZANidine [Zanaflex] 2 mg PO DAILY PRN 01/14/17 [History] Aspirin/Acetaminophen/Caffeine [Mone Migraine Formula Caplet] 1 each PO DAILY PRN 01/24/17 [History] Cholecalciferol (Vitamin D3) [Vitamin D3] 5,000 unit PO DAILY 01/24/17 [History] oxyCODONE HCl/Acetaminophen [Endocet 10-325 mg Tablet] 1 each PO Q4H PRN [History] Gabapentin [Neurontin] 300 mg PO BID 09/02/19 [History] Ibuprofen 800 mg PO DAILY PRN 09/02/19 [History] Inulin/Chromium Picolinate [Fiber Gummies] 2 tab.chew PO BID 09/02/19 [History] Multivitamin [Multiple Vitamins] 1 each PO DAILY 09/02/19 [History] Rosuvastatin Calcium 20 mg PO BEDTIME 09/02/19 [History] Past Medical History HEENT History: Reports: None Cardiovascular History: Reports: Heart Valve Replacement Respiratory History: Reports: None Gastrointestinal History: Reports: GERD Genitourinary History: Reports: None Musculoskeletal History: Reports: Back Pain, Chronic Neurological History: Reports: None Psychiatric History: Reports: None Endocrine/Metabolic History: Reports: None Hematologic History: Reports: None Immunologic History: Reports: None Oncologic (Cancer) History: Reports: None Dermatologic History: Reports: None - Infectious Disease History Infectious Disease History: Reports: Chicken Pox, Measles, Mumps - Past Surgical History Head Surgeries/Procedures: Reports: None HEENT Surgical History: Reports: Tonsillectomy Cardiovascular Surgical History: Reports: Coronary Artery Bypass, Valve Replacement GI Surgical History: Reports: None Neurological Surgical History: Reports: Spinal Fusion Musculoskeletal Surgical History: Reports: Other (See Below) Other Musculoskeletal Surgeries/Procedures:: back surgery Social & Family History - Family History Family Medical History: Noncontributory - Caffeine Use Caffeine Use: Reports: Soda ED ROS GENERAL - Review of Systems Review Of Systems: ROS reveals no pertinent complaints other than HPI. ED EXAM,LOWER BACK PAIN/INJURY - Physical Exam Exam: See Below (see dictation) Course - Vital Signs Last Recorded V/S: Last Vital Signs Temp 95.6 F 09/02/19 16:37 Pulse 62 09/02/19 20:22 Resp 18 09/02/19 19:03 BP 115/65 09/02/19 20:22 Pulse Ox 97 09/02/19 20:22 - Orders/Labs/Meds Orders: Active Orders 24 hr Category Date Time Status UA RFX BREA AND CULT IF INDIC [URIN] Stat Lab 09/02/19 16:43 Ordered Sodium Chloride 0.9% [Saline Flush] Med 09/02/19 16:51 Active 10 ml FLUSH ASDIRECTED PRN Sodium Chloride 0.9% [Saline Flush] Med 09/02/19 16:51 Active 2.5 ml FLUSH ASDIRECTED PRN Saline Lock Insert [OM.PC] Stat Oth 09/02/19 16:50 Ordered Medication Orders Sodium Chloride (Saline Flush) 10 ml FLUSH ASDIRECTED PRN PRN Reason: Keep Vein Open Sodium Chloride (Saline Flush) 2.5 ml FLUSH ASDIRECTED PRN PRN Reason: Keep Vein Open Labs: Laboratory Tests 09/02/19 09/02/19 09/02/19 Range/Units 17:11 18:03 18:03 WBC 8.25 (4.0-11.0) K/uL RBC 2.87 L (4.50-5.90) M/uL Hgb 9.1 L (13.0-17.0) g/dL Hct 28.8 L (38.0-50.0) % MCV 100.3 H (80.0-98.0) fL MCH 31.7 (27.0-32.0) pg MCHC 31.6 (31.0-37.0) g/dL RDW Std Deviation 61.2 (28.0-62.0) fl RDW Coeff of [place] 17 H (11.0-15.0) % Plt Count 828 H (150-400) K/uL MPV 9.00 (7.40-12.00) fL Neut % (Auto) 66.4 (48.0-80.0) % Lymph % (Auto) 21.9 (16.0-40.0) % [place] % (Auto) 10.9 (0.0-15.0) % Eos % (Auto) 0.7 (0.0-7.0) % Baso % (Auto) 0.1 (0.0-1.5) % Neut # (Auto) 5.5 (1.4-5.7) K/uL Lymph # (Auto) 1.8 (0.6-2.4) K/uL [place] # (Auto) 0.9 H (0.0-0.8) K/uL Eos # (Auto) 0.1 (0.0-0.7) K/uL Baso # (Auto) 0.0 (0.0-0.1) K/uL Nucleated RBC % 0.0 /100WBC Nucleated RBCs # 0 K/uL ESR 76 H (0-19) mm/hr Sodium 135 L (136-148) mmol/L Potassium 4.0 (3.5-5.1) mmol/L Chloride 98 (98-107) mmol/L Carbon Dioxide 22.3 (21.0-32.0) mmol/L BUN 14 (7.0-18.0) mg/dL Creatinine 1.1 (0.8-1.3) mg/dL Est Cr Clr Drug Dosing 73.20 mL/min Estimated GFR (MDRD) > 60.0 ml/min Glucose 107 H (74-106) mg/dL Calcium 9.0 (8.5-10.1) mg/dL Total Bilirubin 0.6 (0.2-1.0) mg/dL AST 33 (15-37) IU/L ALT 32 (14-63) IU/L Alkaline Phosphatase 120 H (46-116) U/L C-Reactive Protein (0.00-0.90) mg/dL Total Protein 7.9 (6.4-8.2) g/dL Albumin 3.8 (3.4-5.0) g/dL Globulin 4.1 H (2.6-4.0) g/dL Albumin/Globulin Ratio 0.9 (0.9-1.6) 09/02/19 Range/Units 18:03 WBC (4.0-11.0) K/uL RBC (4.50-5.90) M/uL Hgb (13.0-17.0) g/dL Hct (38.0-50.0) % MCV (80.0-98.0) fL MCH (27.0-32.0) pg MCHC (31.0-37.0) g/dL RDW Std Deviation (28.0-62.0) fl RDW Coeff of [place] (11.0-15.0) % Plt Count (150-400) K/uL MPV (7.40-12.00) fL Neut % (Auto) (48.0-80.0) % Lymph % (Auto) (16.0-40.0) % [place] % (Auto) (0.0-15.0) % Eos % (Auto) (0.0-7.0) % Baso % (Auto) (0.0-1.5) % Neut # (Auto) (1.4-5.7) K/uL Lymph # (Auto) (0.6-2.4) K/uL [place] # (Auto) (0.0-0.8) K/uL Eos # (Auto) (0.0-0.7) K/uL Baso # (Auto) (0.0-0.1) K/uL Nucleated RBC % /100WBC Nucleated RBCs # K/uL ESR (0-19) mm/hr Sodium (136-148) mmol/L Potassium (3.5-5.1) mmol/L Chloride (98-107) mmol/L Carbon Dioxide (21.0-32.0) mmol/L BUN (7.0-18.0) mg/dL Creatinine (0.8-1.3) mg/dL Est Cr Clr Drug Dosing mL/min Estimated GFR (MDRD) ml/min Glucose (74-106) mg/dL Calcium (8.5-10.1) mg/dL Total Bilirubin (0.2-1.0) mg/dL AST (15-37) IU/L ALT (14-63) IU/L Alkaline Phosphatase (46-116) U/L C-Reactive Protein 1.70 H (0.00-0.90) mg/dL Total Protein (6.4-8.2) g/dL Albumin (3.4-5.0) g/dL Globulin (2.6-4.0) g/dL Albumin/Globulin Ratio (0.9-1.6) Meds: Medications Generic Name Dose Route Start Last Admin Trade Name Freq PRN Reason Stop Dose Admin Sodium Chloride 10 ml 09/02/19 16:51 Saline Flush FLUSH ASDIRECTED PRN Keep Vein Open Sodium Chloride 2.5 ml 09/02/19 16:51 Saline Flush FLUSH ASDIRECTED PRN Keep Vein Open Discontinued Medications Generic Name Dose Route Start Last Admin Trade Name Freq PRN Reason Stop Dose Admin Hydromorphone HCl 1 mg 09/02/19 16:51 09/02/19 17:04 Dilaudid IVPUSH 09/02/19 16:52 1 mg ONETIME ONE Administration Hydromorphone HCl 1 mg 09/02/19 18:12 09/02/19 18:22 Dilaudid IVPUSH 09/02/19 18:13 1 mg ONETIME ONE Administration Orphenadrine Citrate 60 mg 09/02/19 20:07 09/02/19 20:17 Norflex IM 09/02/19 20:08 60 mg NOW STA Administration Departure - Departure Time of Disposition: 20:46 Disposition: Refer to Observation Condition: Good Clinical Impression: Lumbar back pain, Status post lumbar spinal fusion - Discharge Information Referrals: Duarte Gonzalez MD [Primary Care Provider] - Forms: ED Department Discharge - My Orders Last 24 Hours: My Active Orders 09/02/19 16:43 UA RFX BREA AND CULT IF INDIC [URIN] Stat 09/02/19 16:50 Saline Lock Insert [OM.PC] Stat 09/02/19 16:51 Sodium Chloride 0.9% [Saline Flush] 10 ml FLUSH ASDIRECTED PRN Sodium Chloride 0.9% [Saline Flush] 2.5 ml FLUSH ASDIRECTED PRN - Assessment/Plan Last 24 Hours: My Active Orders 09/02/19 16:43 UA RFX BREA AND CULT IF INDIC [URIN] Stat 09/02/19 16:50 Saline Lock Insert [OM.PC] Stat 09/02/19 16:51 Sodium Chloride 0.9% [Saline Flush] 10 ml FLUSH ASDIRECTED PRN Sodium Chloride 0.9% [Saline Flush] 2.5 ml FLUSH ASDIRECTED PRN
[2019-09-02 17:41] LABS: BLOOD UREA NITROGEN,BUN 14 mg/dL (7.0-18.0); CARBON DIOXIDE,CO2 22.3 mmol/L (21.0-32.0); CHLORIDE,CL 98 mmol/L (98-107); GLUCOSE RANDOM 107 mg/dL (74-106); SODIUM,NA 135 mmol/L (136-148)
[2019-09-02] MEDS ORDERED: HYDROmorphone 2 MG/ML Syringe IVPUSH ONE (18:12)
--- NOTE | 2019-09-02 19:08 | CT ---
INDICATION: Back pain. COMPARISON: 03/20/2019. TECHNIQUE: Noncontrast CT lumbar spine. FINDINGS: Stable edmond upper lumbar curve convex right and lower lumbar curve convex the left. In the sagittal plane, normal vertebral body alignment. Stable mature postoperative changes of discectomy interbody fusion L4-5 and L5-S1. Stable laminectomies at L4-5 and L5-S1. Since the previous exam, there has been interval revision of postoperative changes with additional laminectomies at L2-3 and L3-4. Posterior naa and transpedicular screw fixation at L2 through L4 bilaterally. Transpedicular screw with no interconnecting naa at L5 and S1 bilaterally. Right L2 transpedicular screw noted to cross the anterior cortex of the pedicle and with the tip seated in the paravertebral soft tissues and not within the vertebral body itself (series 201 image [id number]). Edema and fluid within the posterior soft tissues likely secondary to postoperative change and postop seroma. Immature dorsal bone grafting. [id number] [id number]: No spinal canal or neural foraminal narrowing. L1-2: No spinal canal or neural foraminal narrowing. L2-3: Postoperative changes. Spinal canal is decompressed by laminectomy. Stable disk degeneration. Vacuum disc. No neural foraminal narrowing. L3-4: Disc degeneration. Loss of disc height. Vacuum disc. Spinal canal is decompressed by laminectomy. No severe narrowing of the neural foramina. L4-5: Postoperative changes. Spinal canal is decompressed by laminectomy. No neural foraminal narrowing. L5-S1: Postoperative changes. No narrowing of spinal canal. No neural foraminal narrowing. Degenerative changes of the SI joints. Likely bone graft donor site of the right posterior iliac bone. Scattered vascular calcifications. IMPRESSION: 1. Normal alignment. No fractures. 2. Stable postoperative changes L4-5 and L5-S1. 3. Interval postoperative changes with additional laminectomies at L2-3 and L3-4. Posterior fusion hardware L2 through L4 4. Right L2 transpedicular screw crosses the anterior cortex of the pedicle with tip terminating in the paravertebral soft tissues. 5. No severe spinal canal or neural foraminal narrowing at all levels Please note that all CT scans at this facility use dose modulation, iterative reconstruction, and/or weight-based dosing when appropriate to reduce radiation dose to as low as reasonably achievable. Dictated by Javon Jaramillo MD @ Sep 03 2019 2:40PM Signed by Dr. Javon Jaramillo @ Sep 03 2019 2:48PM
[2019-09-02] MEDS ORDERED: tiZANidine 4 MG Tab PO PRN (23:10)
[2019-09-02] MEDS ORDERED: Docusate Sodium 100 MG Cap PO PRN (23:12)
[2019-09-02] MEDS ORDERED: Magnesium Hydroxide 400 MG/5 ML Susp 30 ML Cup PO PRN (23:12)
[2019-09-02] MEDS ORDERED: Ondansetron 4 MG/2 ML SDV IVPUSH PRN (23:12)
[2019-09-02] MEDS ORDERED: Bisacodyl 5 MG Tab PO PRN (23:12)
[2019-09-03] MEDS: HYDROmorphone 1 MG/ML Syringe IVPUSH PRN ×9 (00:15→21:49)
[2019-09-03] MEDS: Acetaminophen/oxyCODONE 325-10 MG Tab PO PRN ×6 (00:46→23:56)
[2019-09-03] MEDS: Gabapentin 300 MG Cap PO SCH ×3 (05:06→21:39)
[2019-09-03] MEDS: tiZANidine 4 MG Tab PO PRN ×3 (05:41→18:35)
--- NOTE | 2019-09-03 08:00 | PCM.HP.2 ---
Addendum entered and electronically signed by Lani Dunbar NP 09/03/19 15:01 : Final report for CT revealed: 1. Normal alignment. No fractures. 2. Stable postoperative changes L4-5 and L5-S1. 3. Interval postoperative changes with additional laminectomies at L2-3 and L3- 4. Posterior fusion hardware L2 through L4 4. Right L2 transpedicular screw crosses the anterior cortex of the pedicle with tip terminating in the paravertebral soft tissues. 5. No severe spinal canal or neural foraminal narrowing at all levels patient updated on these results. Will continue to provide pain control. Original Note: H&P History of Present Illness - General Date of Service: 09/03/19 Admit Problem/Dx: Admission Diagnosis/Problem Admission Diagnosis/Problem Lumbar back pain with radiculopathy affecting right lower extremity Source of Information: Patient History Limitations: Reports: No Limitations - History of Present Illness Initial Comments - Free Text/Narative: This 58 year old male with heart valve replacement and recent lumbar fusion of L2-3 in [place] 2 weeks ago presented to the ED with complaints of low back pain and numbness to R leg with pain to front of R thigh. He denies fevers chills, chest pain or cough at home. Reports incision is healing well with no complications. Reports he was perviously placed on a steroid taper due to increasing pain. He denies bowel or bladder incontinence. In the ED labwork WNL. CT of lumbar preliminary reports reveals, "Posterior naa and pedicle screw hardware at L2-S1 with posterior bone graft. The right L2 screw extends through the pedicle and into the soft tissues lateral to the right side of the L2 vertebral body. No acute fracture. Soft tissue density dorsal to the hardware and also posteromedial to bone donor site on right posterior iliac wing may represent post-operative edema/hemorrhage/granulation tissue but infection cannot be excluded. No air within the soft tissues. No bone erosions." ED provider contacted PA in [place], see note for recommendations for continued steroid taper and pain control. He was admitted for pain control. back Pain Score (Numeric/FACES): 9 - Related Data Allergies/Adverse Reactions: Allergies Allergy/AdvReac Type Severity Reaction Status Date / Time No Known Allergies Allergy Verified 09/02/19 22:38 Home Medications: Home Meds Aspirin [Halfprin] 81 mg PO DAILY 01/14/17 [History] Omeprazole 20 mg PO BIDAC 01/14/17 [History] Sertraline HCl 100 mg PO DAILY 01/14/17 [History] Tamsulosin [Flomax] 0.4 mg PO BEDTIME 01/14/17 [History] Warfarin [Coumadin] 3 mg PO DAILY 01/14/17 [History] oxyCODONE HCl [Oxycontin] 15 mg PO BID 01/14/17 [History] tiZANidine [Zanaflex] 4 mg PO Q6HR PRN 01/14/17 [History] Aspirin/Acetaminophen/Caffeine [Mone Migraine Formula Caplet] 1 each PO DAILY PRN 01/24/17 [History] Cholecalciferol (Vitamin D3) [Vitamin D3] 5,000 unit PO DAILY 01/24/17 [History] oxyCODONE HCl/Acetaminophen [Endocet 10-325 mg Tablet] 1 each PO Q4H PRN [History] Gabapentin [Neurontin] 300 mg PO TID 09/02/19 [History] Ibuprofen 800 mg PO DAILY PRN 09/02/19 [History] Inulin/Chromium Picolinate [Fiber Gummies] 2 tab.chew PO BID 09/02/19 [History] Multivitamin [Multiple Vitamins] 1 each PO DAILY 09/02/19 [History] Rosuvastatin Calcium 20 mg PO BEDTIME 09/02/19 [History] Past Medical History HEENT History: Reports: None Cardiovascular History: Reports: Heart Valve Replacement Respiratory History: Reports: None Gastrointestinal History: Reports: GERD Genitourinary History: Reports: None Musculoskeletal History: Reports: Back Pain, Chronic Neurological History: Reports: None Psychiatric History: Reports: None Endocrine/Metabolic History: Reports: None Hematologic History: Reports: None Immunologic History: Reports: None Oncologic (Cancer) History: Reports: None Dermatologic History: Reports: None - Infectious Disease History Infectious Disease History: Reports: Chicken Pox, Measles, Mumps - Past Surgical History Head Surgeries/Procedures: Reports: None HEENT Surgical History: Reports: Tonsillectomy Cardiovascular Surgical History: Reports: Coronary Artery Bypass, Valve Replacement GI Surgical History: Reports: None Neurological Surgical History: Reports: Spinal Fusion Musculoskeletal Surgical History: Reports: Other (See Below) Other Musculoskeletal Surgeries/Procedures:: back surgery Social & Family History - Family History Family Medical History: Noncontributory - Tobacco Use Smoking Status *Q: Former Smoker Used Tobacco, but Quit: Yes Month/Year Tobacco Last Used: 2008 - Caffeine Use Caffeine Use: Reports: Soda Caffeine Use Comment: Rarely - Recreational Drug Use Recreational Drug Use: No H&P Review of Systems - Review of Systems: Review Of Systems: See Below General: Reports: Weakness (generalized). Denies: Fever, Chills Pulmonary: Reports: No Symptoms. Denies: Shortness of Breath Cardiovascular: Reports: No Symptoms. Denies: Chest Pain Gastrointestinal: Reports: No Symptoms. Denies: Abdominal Pain Genitourinary: Reports: No Symptoms. Denies: Dysuria, Frequency, Incontinence, Hematuria Musculoskeletal: Reports: Back Pain (low back), Leg Pain (R thigh) Skin: Reports: Wound (incision) Neurological: Reports: Numbness, Tingling (R leg, improved from presentation in ED) Exam - Exam Exam: See Below - Vital Signs Vital Signs: Last Vital Signs Temp 97.4 F 09/03/19 04:00 Pulse 69 09/03/19 04:00 Resp 16 09/03/19 04:00 BP 115/55 L 09/03/19 04:00 Pulse Ox 95 09/03/19 04:00 Weight: 90.718 kg - Exam General: Alert, Oriented, Cooperative Neck: Supple Lungs: Clear to Auscultation, Normal Respiratory Effort Cardiovascular: Regular Rate, Regular Rhythm GI/Abdominal Exam: Normal Bowel Sounds, Soft, Non-Tender Back Exam: Normal Inspection, Full Range of Motion Extremities: Normal Inspection, Normal Range of Motion Neurological: No: Strength Equal Bilateral (unable to straight leg raise to R due to back pain and weakness. reports sensation intact to testing. able to move leg, but feels heavy and tingling. Improved from numbness he had upon initially coming to ED) Neuro Extensive - Mental Status: Alert, Oriented x3 Neuro Extensive - Motor, Sensory, Reflexes: CN II-XII Intact - Patient Data Lab Results Last 24 hrs: Laboratory Results - last 24 hr 09/02/19 09/02/19 09/02/19 Range/Units 17:11 18:03 18:03 WBC 8.25 (4.0-11.0) K/uL RBC 2.87 L (4.50-5.90) M/uL Hgb 9.1 L (13.0-17.0) g/dL Hct 28.8 L (38.0-50.0) % MCV 100.3 H (80.0-98.0) fL MCH 31.7 (27.0-32.0) pg MCHC 31.6 (31.0-37.0) g/dL RDW Std Deviation 61.2 (28.0-62.0) fl RDW Coeff of [place] 17 H (11.0-15.0) % Plt Count 828 H (150-400) K/uL MPV 9.00 (7.40-12.00) fL Neut % (Auto) 66.4 (48.0-80.0) % Lymph % (Auto) 21.9 (16.0-40.0) % [place] % (Auto) 10.9 (0.0-15.0) % Eos % (Auto) 0.7 (0.0-7.0) % Baso % (Auto) 0.1 (0.0-1.5) % Neut # (Auto) 5.5 (1.4-5.7) K/uL Lymph # (Auto) 1.8 (0.6-2.4) K/uL [place] # (Auto) 0.9 H (0.0-0.8) K/uL Eos # (Auto) 0.1 (0.0-0.7) K/uL Baso # (Auto) 0.0 (0.0-0.1) K/uL Nucleated RBC % 0.0 /100WBC Nucleated RBCs # 0 K/uL ESR 76 H (0-19) mm/hr INR Sodium 135 L (136-148) mmol/L Potassium 4.0 (3.5-5.1) mmol/L Chloride 98 (98-107) mmol/L Carbon Dioxide 22.3 (21.0-32.0) mmol/L BUN 14 (7.0-18.0) mg/dL Creatinine 1.1 (0.8-1.3) mg/dL Est Cr Clr Drug Dosing 73.20 mL/min Estimated GFR (MDRD) > 60.0 ml/min Glucose 107 H (74-106) mg/dL Calcium 9.0 (8.5-10.1) mg/dL Total Bilirubin 0.6 (0.2-1.0) mg/dL AST 33 (15-37) IU/L ALT 32 (14-63) IU/L Alkaline Phosphatase 120 H (46-116) U/L C-Reactive Protein (0.00-0.90) mg/dL Total Protein 7.9 (6.4-8.2) g/dL Albumin 3.8 (3.4-5.0) g/dL Globulin 4.1 H (2.6-4.0) g/dL Albumin/Globulin Ratio 0.9 (0.9-1.6) Urine Color Urine Appearance Urine pH (5.0-8.0) Ur Specific [place] (1.001-1.035) Urine Protein (NEGATIVE) mg/dL Urine Glucose (UA) (NEGATIVE) mg/dL Urine Ketones (NEGATIVE) mg/dL Urine Occult Blood (NEGATIVE) Urine Nitrite (NEGATIVE) Urine Bilirubin (NEGATIVE) Urine Urobilinogen (<2.0) EU/dL Ur Leukocyte Esterase (NEGATIVE) 09/02/19 09/03/19 09/03/19 Range/Units 18:03 03:00 07:33 WBC (4.0-11.0) K/uL RBC (4.50-5.90) M/uL Hgb (13.0-17.0) g/dL Hct (38.0-50.0) % MCV (80.0-98.0) fL MCH (27.0-32.0) pg MCHC (31.0-37.0) g/dL RDW Std Deviation (28.0-62.0) fl RDW Coeff of [place] (11.0-15.0) % Plt Count (150-400) K/uL MPV (7.40-12.00) fL Neut % (Auto) (48.0-80.0) % Lymph % (Auto) (16.0-40.0) % [place] % (Auto) (0.0-15.0) % Eos % (Auto) (0.0-7.0) % Baso % (Auto) (0.0-1.5) % Neut # (Auto) (1.4-5.7) K/uL Lymph # (Auto) (0.6-2.4) K/uL [place] # (Auto) (0.0-0.8) K/uL Eos # (Auto) (0.0-0.7) K/uL Baso # (Auto) (0.0-0.1) K/uL Nucleated RBC % /100WBC Nucleated RBCs # K/uL ESR (0-19) mm/hr INR 3.72 Sodium (136-148) mmol/L Potassium (3.5-5.1) mmol/L Chloride (98-107) mmol/L Carbon Dioxide (21.0-32.0) mmol/L BUN (7.0-18.0) mg/dL Creatinine (0.8-1.3) mg/dL Est Cr Clr Drug Dosing mL/min Estimated GFR (MDRD) ml/min Glucose (74-106) mg/dL Calcium (8.5-10.1) mg/dL Total Bilirubin (0.2-1.0) mg/dL AST (15-37) IU/L ALT (14-63) IU/L Alkaline Phosphatase (46-116) U/L C-Reactive Protein 1.70 H (0.00-0.90) mg/dL Total Protein (6.4-8.2) g/dL Albumin (3.4-5.0) g/dL Globulin (2.6-4.0) g/dL Albumin/Globulin Ratio (0.9-1.6) Urine Color YELLOW Urine Appearance CLEAR Urine pH 5.5 (5.0-8.0) Ur Specific [place]ore 1.020 (1.001-1.035) Urine Protein NEGATIVE (NEGATIVE) mg/dL Urine Glucose (UA) NEGATIVE (NEGATIVE) mg/dL Urine Ketones NEGATIVE (NEGATIVE) mg/dL Urine Occult Blood NEGATIVE (NEGATIVE) Urine Nitrite NEGATIVE (NEGATIVE) Urine Bilirubin NEGATIVE (NEGATIVE) Urine Urobilinogen 0.2 (<2.0) EU/dL Ur Leukocyte Esterase NEGATIVE (NEGATIVE) Result Diagrams: 09/03/19 07:33 09/03/19 07:33 - Problem List (1) Lumbar back pain SNOMED Code(s): 848191887 ICD Code: M54.5 - LOW BACK PAIN Status: Acute Current Visit: Yes (2) Hx of artificial heart valve replacement Status: Acute Current Visit: Yes (3) Status post lumbar spinal fusion SNOMED Code(s): 83106641831861, 34404689, 30553378449920 ICD Code: Z98.1 - ARTHRODESIS STATUS Status: Acute Current Visit: Yes Problem List Initiated/Reviewed/Updated: Yes Orders Last 24hrs: Active Orders 24 hr Category Date Time Status Admission Status [Patient Status] [ADT] Stat ADT 09/02/19 20:47 Active Antiembolic Devices [RC] PER UNIT ROUTINE Care 09/02/19 23:13 Active Oxygen Therapy [RC] PRN Care 09/02/19 23:12 Active Up ad Eri [RC] ASDIRECTED Care 09/02/19 23:12 Active VTE/DVT Education [RC] PER UNIT ROUTINE Care 09/02/19 23:12 Active Vital Signs [RC] Q4H Care 09/02/19 23:12 Active PT Evaluation and Treatment [CONS] Routine Cons 09/02/19 23:12 Active BASIC METABOLIC PANEL,BMP [CHEM] AM Lab 09/03/19 05:11 Ordered CBC WITH AUTO DIFF [HEME] AM Lab 09/03/19 05:11 Ordered INR,PT,PROTHROMBIN TIME [COAG] DAILY Lab 09/04/19 05:30 Ordered INR,PT,PROTHROMBIN TIME [COAG] DAILY Lab 09/05/19 05:30 Ordered INR,PT,PROTHROMBIN TIME [COAG] DAILY Lab 09/06/19 05:30 Ordered INR,PT,PROTHROMBIN TIME [COAG] DAILY Lab 09/07/19 05:30 Ordered INR,PT,PROTHROMBIN TIME [COAG] DAILY Lab 09/08/19 05:30 Ordered Acetaminophen/oxyCODONE [Percocet 325-10 MG] Med 09/02/19 23:10 Active 1 tab PO Q4H PRN Bisacodyl [Dulcolax] Med 09/02/19 23:12 Active 5 mg PO DAILY PRN Docusate Sodium [Colace] Med 09/02/19 23:12 Active 100 mg PO BID PRN Gabapentin [Neurontin] Med 09/03/19 06:00 Active 300 mg PO TID HYDROmorphone [Dilaudid] Med 09/02/19 23:12 Active 1 mg IVPUSH Q2H PRN Magnesium Hydroxide [Milk of Magnesia] Med 09/02/19 23:12 Active 30 ml PO Q12H PRN Ondansetron [Zofran] Med 09/02/19 23:12 Active 4 mg IVPUSH Q4H PRN Pantoprazole [ProTONIX] Med 09/03/19 09:00 Active 40 mg PO DAILY Patient's Own Medication [Ptom] Med 09/03/19 09:00 Active 0 each PO BID Rosuvastatin [Crestor] Med 09/03/19 21:00 Active 20 mg PO BEDTIME Sertraline [Zoloft] Med 09/03/19 09:00 Active 100 mg PO DAILY Sodium Chloride 0.9% [Saline Flush] Med 09/02/19 16:51 Active 10 ml FLUSH ASDIRECTED PRN Sodium Chloride 0.9% [Saline Flush] Med 09/02/19 16:51 Active 2.5 ml FLUSH ASDIRECTED PRN Tamsulosin [Flomax] Med 09/03/19 21:00 Active 0.4 mg PO BEDTIME Warfarin [Coumadin] Med 09/03/19 14:00 Active 1 mg PO DAILY@1400 Warfarin [Coumadin] Med 09/03/19 14:00 Active 2 mg PO DAILY@1400 tiZANidine [Zanaflex] Med 09/03/19 05:32 Active 4 mg PO Q6H PRN Saline Lock Insert [OM.PC] Stat Oth 09/02/19 16:50 Ordered Sequential Compression Device [OM.PC] Per Unit Routine Oth 09/02/19 23:12 Ordered Resuscitation Status Routine Resus Stat 09/02/19 23:12 Ordered Medication Orders Bisacodyl (Dulcolax) 5 mg PO DAILY PRN PRN Reason: Constipation Docusate Sodium (Colace) 100 mg PO BID PRN PRN Reason: Constipation Gabapentin (Neurontin) 300 mg PO TID [facility] Last Admin: 09/03/19 05:06 Dose: 300 mg Hydromorphone HCl (Dilaudid) 1 mg IVPUSH Q2H PRN PRN Reason: Pain (severe 7-10) Last Admin: 09/03/19 05:04 Dose: 1 mg Admin: 09/03/19 02:40 Dose: 1 mg Admin: 09/03/19 00:15 Dose: 1 mg Magnesium Hydroxide (Milk Of Magnesia) 30 ml PO Q12H PRN PRN Reason: Constipation Ondansetron HCl (Zofran) 4 mg IVPUSH Q4H PRN PRN Reason: Nausea Oxycodone/Acetaminophen (Percocet 325-10 Mg) 1 tab PO Q4H PRN PRN Reason: Pain Last Admin: 09/03/19 04:39 Dose: 1 tab Admin: 09/03/19 00:46 Dose: 1 tab Pantoprazole Sodium (Protonix) 40 mg PO DAILY [facility] Oxycodone Hcl [ (Oxycontin] 15 Mg) 0 each PO BID [facility] Rosuvastatin Calcium (Crestor) 20 mg PO BEDTIME [place] Sertraline HCl (Zoloft) 100 mg PO DAILY [facility] Sodium Chloride (Saline Flush) 10 ml FLUSH ASDIRECTED PRN PRN Reason: Keep Vein Open Sodium Chloride (Saline Flush) 2.5 ml FLUSH ASDIRECTED PRN PRN Reason: Keep Vein Open Tamsulosin HCl (Flomax) 0.4 mg PO BEDTIME [place] Tizanidine HCl (Zanaflex) 4 mg PO Q6H PRN PRN Reason: Muscle Spasm Last Admin: 09/03/19 05:41 Dose: 4 mg Warfarin Sodium (Coumadin) 2 mg PO DAILY@1400 [place] Warfarin Sodium (Coumadin) 1 mg PO DAILY@1400 [facility] Assessment/Plan Comment:: This 58 year old male presented with radiculopathy to R leg and low back pain, S /P fusion of L2-3 1. Lumbar pain with radiculopathy: Will follow recommendation of PA, continue steroid taper daily. Pain control. PT to evaluate and treat. Protonix with steroid taper. Continue Oxycodone and Oxycontin 2. Heart valve: Continue to monitor INR, 3.7 today. Continue Coumadin. Hgb 7.9 No signs of bleeding. Monitor closely. VTE prophylaxis: Coumadin Dispo: 1-2 days - Mortality Measure Prognosis:: Good
[2019-09-03] MEDS: Pantoprazole 40 MG Tab.CR PO SCH (08:15)
[2019-09-03] MEDS: Sertraline 100 MG Tab PO SCH (08:15)
[2019-09-03] MEDS: OXYCODONE HCL 15 MG PO SCH ×2 (08:31→21:39)
[2019-09-03 12:03] LABS: BLOOD UREA NITROGEN,BUN 12 mg/dL (7.0-18.0); CARBON DIOXIDE,CO2 29.7 mmol/L (21.0-32.0); CHLORIDE,CL 101 mmol/L (98-107); GLUCOSE RANDOM 111 mg/dL (74-106); POTASSIUM,K 4.7 mmol/L (3.5-5.1); SODIUM,NA 137 mmol/L (136-148)
[2019-09-03] MEDS ORDERED: Warfarin 2 MG Tab PO SCH (14:00)
[2019-09-03] MEDS ORDERED: predniSONE 20 MG Tab PO ONE (15:00)
[2019-09-03] MEDS: Rosuvastatin 10 MG Tab PO SCH (21:38)
[2019-09-03] MEDS: Tamsulosin 0.4 MG Cap.ER PO SCH (21:38)
[2019-09-04] MEDS: tiZANidine 4 MG Tab PO PRN ×2 (00:35→04:33)
[2019-09-04] MEDS: HYDROmorphone 1 MG/ML Syringe IVPUSH PRN ×6 (03:07→18:44)
[2019-09-04] MEDS ORDERED: HYDROmorphone 1 MG/ML Syringe IVPUSH ONE (03:28)
[2019-09-04] MEDS: Acetaminophen/oxyCODONE 325-10 MG Tab PO PRN ×5 (03:38→22:27)
[2019-09-04] MEDS ORDERED: fentaNYL 12 MCG/HR Transdermal Patch TRDERM SCH (04:30)
[2019-09-04 05:47] LABS: BLOOD UREA NITROGEN,BUN 14 mg/dL (7.0-18.0); CARBON DIOXIDE,CO2 25.2 mmol/L (21.0-32.0); CHLORIDE,CL 99 mmol/L (98-107); GLUCOSE RANDOM 166 mg/dL (74-106); POTASSIUM,K 3.9 mmol/L (3.5-5.1); SODIUM,NA 136 mmol/L (136-148)
[2019-09-04] MEDS: Gabapentin 300 MG Cap PO SCH ×3 (07:37→21:27)
[2019-09-04] MEDS ORDERED: predniSONE 20 MG Tab PO SCH ×2 (08:00)
[2019-09-04] MEDS ORDERED: Dexamethasone 4 MG/ML SDV IVPUSH SCH (08:15)
[2019-09-04] MEDS: Sertraline 100 MG Tab PO SCH (08:49)
[2019-09-04] MEDS: Pantoprazole 40 MG Tab.CR PO SCH (08:49)
[2019-09-04] MEDS: OXYCODONE HCL 15 MG PO SCH ×2 (09:09→21:27)
--- NOTE | 2019-09-04 11:49 | PCM.PN ---
Addendum entered and electronically signed by Lani Dunbar NP 09/04/19 12:54 : Spoke with Dr Keith, he reviewed CT report, awaiting Disk to be sent to review images. He feels report is unremarkable. We reviewed John's symptoms and medication regimen. He only recommended increasing Dexamethasone to 8 mg every 8 hours. He will contact when he has been able to review disk. Change to inpatient status as continued inpatient care is needed with IV pain medications and steroids. Original Note: <Lani Dunbar - Last Filed: 09/04/19 12:12> - General Info Date of Service: 09/04/19 Admission Dx/Problem (Free Text): Admission Diagnosis/Problem Admission Diagnosis/Problem Lumbar back pain with radiculopathy affecting right lower extremity Subjective Update: Had very rough night with pain. Had BM at 3 am with significant pain. No chest pain. No SOB. Pain to anterior thigh with numbness intermittently to entire leg. Functional Status: Reports: Tolerating Diet, Urinating. Denies: Pain Controlled , Ambulating - Review of Systems General: Reports: Weakness Pulmonary: Reports: No Symptoms. Denies: Shortness of Breath Cardiovascular: Reports: No Symptoms. Denies: Chest Pain Gastrointestinal: Reports: No Symptoms. Denies: Abdominal Pain, Constipation, Nausea, Vomiting Genitourinary: Reports: No Symptoms. Denies: Dysuria, Frequency, Incontinence Musculoskeletal: Reports: Leg Pain (R leg pain, anterior thigh) Skin: Reports: No Symptoms Neurological: Reports: No Symptoms Psychiatric: Reports: No Symptoms - Patient Data Vitals - Most Recent: Last Vital Signs Temp 96.7 F 09/04/19 08:05 Pulse 60 09/04/19 08:05 Resp 16 09/04/19 08:05 BP 102/53 L 09/04/19 08:05 Pulse Ox 96 09/04/19 08:05 Weight - Most Recent: 90.718 kg I&O - Last 24 Hours: Intake & Output 09/03/19 09/04/19 09/04/19 22:59 06:59 14:59 Intake Total 740 1700 Output Total 350 1800 Balance 390 -100 Lab Results Last 24 Hours: Laboratory Results - last 24 hr 09/03/19 09/03/19 09/04/19 Range/Units 07:33 07:33 04:35 WBC 10.12 (4.0-11.0) K/uL RBC 2.53 L (4.50-5.90) M/uL Hgb 7.9 L (13.0-17.0) g/dL Hct 25.7 L (38.0-50.0) % MCV 101.6 H (80.0-98.0) fL MCH 31.2 (27.0-32.0) pg MCHC 30.7 L (31.0-37.0) g/dL RDW Std Deviation 63.2 H (28.0-62.0) fl RDW Coeff of [place] 18 H (11.0-15.0) % Plt Count 634 H (150-400) K/uL MPV 9.20 (7.40-12.00) fL Neut % (Auto) 73.0 (48.0-80.0) % Lymph % (Auto) 12.1 L (16.0-40.0) % [place] % (Auto) 14.2 (0.0-15.0) % Eos % (Auto) 0.5 (0.0-7.0) % Baso % (Auto) 0.2 (0.0-1.5) % Neut # (Auto) 7.4 H (1.4-5.7) K/uL Lymph # (Auto) 1.2 (0.6-2.4) K/uL [place] # (Auto) 1.4 H (0.0-0.8) K/uL Eos # (Auto) 0.1 (0.0-0.7) K/uL Baso # (Auto) 0.0 (0.0-0.1) K/uL Nucleated RBC % 0.0 /100WBC Nucleated RBCs # 0 K/uL INR 3.63 Sodium 137 (136-148) mmol/L Potassium 4.7 (3.5-5.1) mmol/L Chloride 101 (98-107) mmol/L Carbon Dioxide 29.7 (21.0-32.0) mmol/L BUN 12 (7.0-18.0) mg/dL Creatinine 0.9 (0.8-1.3) mg/dL Est Cr Clr Drug Dosing 89.47 mL/min Estimated GFR (MDRD) > 60.0 ml/min Glucose 111 H (74-106) mg/dL Calcium 9.1 (8.5-10.1) mg/dL 09/04/19 09/04/19 Range/Units 04:35 04:35 WBC 8.92 (4.0-11.0) K/uL RBC 2.55 L (4.50-5.90) M/uL Hgb 8.0 L (13.0-17.0) g/dL Hct 25.3 L (38.0-50.0) % MCV 99.2 H (80.0-98.0) fL MCH 31.4 (27.0-32.0) pg MCHC 31.6 (31.0-37.0) g/dL RDW Std Deviation 59.9 (28.0-62.0) fl RDW Coeff of [place] 17 H (11.0-15.0) % Plt Count 696 H (150-400) K/uL MPV 9.10 (7.40-12.00) fL Neut % (Auto) 82.9 H (48.0-80.0) % Lymph % (Auto) 6.7 L (16.0-40.0) % [place] % (Auto) 10.4 (0.0-15.0) % Eos % (Auto) 0.0 (0.0-7.0) % Baso % (Auto) 0.0 (0.0-1.5) % Neut # (Auto) 7.4 H (1.4-5.7) K/uL Lymph # (Auto) 0.6 (0.6-2.4) K/uL [place] # (Auto) 0.9 H (0.0-0.8) K/uL Eos # (Auto) 0.0 (0.0-0.7) K/uL Baso # (Auto) 0.0 (0.0-0.1) K/uL Nucleated RBC % 0.2 /100WBC Nucleated RBCs # 0 K/uL INR Sodium 136 (136-148) mmol/L Potassium 3.9 (3.5-5.1) mmol/L Chloride 99 (98-107) mmol/L Carbon Dioxide 25.2 (21.0-32.0) mmol/L BUN 14 (7.0-18.0) mg/dL Creatinine 0.9 (0.8-1.3) mg/dL Est Cr Clr Drug Dosing 89.47 mL/min Estimated GFR (MDRD) > 60.0 ml/min Glucose 166 H (74-106) mg/dL Calcium 9.3 (8.5-10.1) mg/dL Med Orders - Current: Current Medications Bisacodyl (Dulcolax) 5 mg PO DAILY PRN PRN Reason: Constipation Dexamethasone (Dexamethasone) 4 mg IVPUSH Q12H [facility] Last Admin: 09/04/19 08:50 Dose: 4 mg Docusate Sodium (Colace) 100 mg PO BID PRN PRN Reason: Constipation Gabapentin (Neurontin) 300 mg PO TID [facility] Last Admin: 09/04/19 07:37 Dose: 300 mg Hydromorphone HCl (Dilaudid) 1 mg IVPUSH Q2H PRN PRN Reason: Pain (severe 7-10) Last Admin: 09/04/19 07:37 Dose: 1 mg Magnesium Hydroxide (Milk Of Magnesia) 30 ml PO Q12H PRN PRN Reason: Constipation Ondansetron HCl (Zofran) 4 mg IVPUSH Q4H PRN PRN Reason: Nausea Orphenadrine Citrate (Norflex) 60 mg IV Q12H [facility] Last Admin: 09/04/19 08:49 Dose: 60 mg Oxycodone/Acetaminophen (Percocet 325-10 Mg) 1 tab PO Q4H PRN PRN Reason: Pain Last Admin: 09/04/19 07:55 Dose: 1 tab Pantoprazole Sodium (Protonix) 40 mg PO DAILY [facility] Last Admin: 09/04/19 08:49 Dose: 40 mg Oxycodone Hcl [ (Oxycontin] 15 Mg) 0 each PO BID [facility] Last Admin: 09/04/19 09:09 Dose: 15 each Rosuvastatin Calcium (Crestor) 20 mg PO BEDTIME [facility] Last Admin: 09/03/19 21:38 Dose: 20 mg Sertraline HCl (Zoloft) 100 mg PO DAILY [facility] Last Admin: 09/04/19 08:49 Dose: 100 mg Sodium Chloride (Saline Flush) 10 ml FLUSH ASDIRECTED PRN PRN Reason: Keep Vein Open Sodium Chloride (Saline Flush) 2.5 ml FLUSH ASDIRECTED PRN PRN Reason: Keep Vein Open Tamsulosin HCl (Flomax) 0.4 mg PO BEDTIME [facility] Last Admin: 09/03/19 21:38 Dose: 0.4 mg Warfarin Sodium (Coumadin Ask) 0 each PO DAILY@1400 [place] Last Admin: 09/03/19 13:37 Dose: Not Given Warfarin Sodium (Coumadin) 3 mg PO DAILY@1400 [place] Discontinued Medications Hydromorphone HCl (Dilaudid) 1 mg IVPUSH ONETIME ONE Stop: 09/02/19 16:52 Last Admin: 09/02/19 17:04 Dose: 1 mg Hydromorphone HCl (Dilaudid) 1 mg IVPUSH ONETIME ONE Stop: 09/02/19 18:13 Last Admin: 09/02/19 18:22 Dose: 1 mg Hydromorphone HCl (Dilaudid) 1 mg IVPUSH ONETIME ONE Stop: 09/02/19 21:42 Last Admin: 09/02/19 21:54 Dose: 1 mg Hydromorphone HCl (Dilaudid) 1 mg IVPUSH ONETIME ONE Stop: 09/04/19 03:29 Last Admin: 09/04/19 03:32 Dose: 1 mg Orphenadrine Citrate (Norflex) 60 mg IM NOW STA Stop: 09/02/19 20:08 Last Admin: 09/02/19 20:17 Dose: 60 mg Prednisone (Prednisone) 60 mg PO WITHBREAKFAST [facility] Prednisone (Prednisone) 60 mg PO ONETIME ONE Stop: 09/04/19 14:30 Prednisone (Prednisone) 60 mg PO ONETIME ONE Stop: 09/03/19 15:01 Last Admin: 09/03/19 15:20 Dose: 60 mg Prednisone (Prednisone) 60 mg PO WITHBREAKFAST [facility] Last Admin: 09/04/19 07:55 Dose: 60 mg Tizanidine HCl (Zanaflex) 2 mg PO DAILY PRN PRN Reason: Pain Tizanidine HCl (Zanaflex) 4 mg PO Q6H PRN PRN Reason: Muscle Spasm Last Admin: 09/04/19 04:33 Dose: 4 mg Warfarin Sodium (Coumadin) 3 mg PO 09/03/19@1400 [place] Stop: 09/03/19 14:01 Last Admin: 09/03/19 13:34 Dose: 3 mg - Exam General: Alert, Oriented, Cooperative, No Acute Distress Lungs: Clear to Auscultation, Normal Respiratory Effort Cardiovascular: Regular Rate, Regular Rhythm GI/Abdominal Exam: Normal Bowel Sounds, Soft, Non-Tender, No Organomegaly Back Exam: Normal Inspection, Full Range of Motion Extremities: Normal Inspection, Normal Range of Motion, Non-Tender Wound/Incisions: Healing Well Neurological: No: Sensation Intact (some numbness noted to R leg intermittently , improves with pain control, muscle spasms noted to anterior R thigh) Psy/Mental Status: Alert, Normal Affect, Normal Mood - Problem List & Annotations (1) Lumbar back pain SNOMED Code(s): 433650798 Code(s): M54.5 - LOW BACK PAIN Status: Acute Current Visit: Yes (2) Hx of artificial heart valve replacement Status: Acute Current Visit: Yes (3) Status post lumbar spinal fusion SNOMED Code(s): 50743072673848, 28535631, 70703601822695 Code(s): Z98.1 - ARTHRODESIS STATUS Status: Acute Current Visit: Yes - Problem List Review Problem List Initiated/Reviewed/Updated: Yes - My Orders Last 24 Hours: My Active Orders 09/03/19 15:00 Heat Therapy [OM.PC] Routine Ice Therapy [OM.PC] Routine 09/04/19 08:15 Orphenadrine [Norflex] 60 mg IV Q12H dexAMETHasone [Dexamethasone] 4 mg IVPUSH Q12H 09/04/19 10:50 Hip Min 2V Bi [CR] Urgent 09/05/19 05:11 BMP [BASIC METABOLIC PANEL,BMP] [CHEM] AM CBC WITH AUTO DIFF [HEME] AM - Plan Plan:: This 58 year old male presented with radiculopathy to R leg and low back pain, S /P fusion of L2-3 1. Lumbar pain with radiculopathy: Spoke with GAVIOTA Leggtet from [facility]. Dr Keith was in surgery. Spoke with her regarding his symptoms and current medication regimen. She recommended hip xrays to insure hip was ok. We faxed CT reports, unable to send images through PACS. She will contact Dr Keith and get a hold of us with recommendations. He has mild pain with hip movement but most pain is noted to anterior R thigh. Pain improved with addition of Orphenadrine 60 mg IV q12h. Continue with Pain control Oxycodone and Oxycontin. Stop Prednisone and add Dexamethasone 4 mg Q12h. Heat and ICE therapy. 2. Heart valve: Continue to monitor INR, 3.5 today. Continue Coumadin. Hgb 8.0 No signs of bleeding. Monitor closely. VTE prophylaxis: Coumadin Dispo: 1-2 days <Leland Banerjee - Last Filed: 09/04/19 17:38> - Patient Data Vitals - Most Recent: Last Vital Signs Temp 36.7 C 09/04/19 16:00 Pulse 72 09/04/19 16:00 Resp 20 09/04/19 16:00 BP 135/63 09/04/19 16:00 Pulse Ox 97 09/04/19 16:00 I&O - Last 24 Hours: Intake & Output 09/04/19 09/04/19 09/04/19 06:59 14:59 22:59 Intake Total 1700 240 Output Total 1800 Balance -100 240 Lab Results Last 24 Hours: Laboratory Results - last 24 hr 09/04/19 09/04/19 09/04/19 Range/Units 04:35 04:35 04:35 WBC 8.92 (4.0-11.0) K/uL RBC 2.55 L (4.50-5.90) M/uL Hgb 8.0 L (13.0-17.0) g/dL Hct 25.3 L (38.0-50.0) % MCV 99.2 H (80.0-98.0) fL MCH 31.4 (27.0-32.0) pg MCHC 31.6 (31.0-37.0) g/dL RDW Std Deviation 59.9 (28.0-62.0) fl RDW Coeff of [place] 17 H (11.0-15.0) % Plt Count 696 H (150-400) K/uL MPV 9.10 (7.40-12.00) fL Neut % (Auto) 82.9 H (48.0-80.0) % Lymph % (Auto) 6.7 L (16.0-40.0) % [place] % (Auto) 10.4 (0.0-15.0) % Eos % (Auto) 0.0 (0.0-7.0) % Baso % (Auto) 0.0 (0.0-1.5) % Neut # (Auto) 7.4 H (1.4-5.7) K/uL Lymph # (Auto) 0.6 (0.6-2.4) K/uL [place] # (Auto) 0.9 H (0.0-0.8) K/uL Eos # (Auto) 0.0 (0.0-0.7) K/uL Baso # (Auto) 0.0 (0.0-0.1) K/uL Nucleated RBC % 0.2 /100WBC Nucleated RBCs # 0 K/uL INR 3.63 Sodium 136 (136-148) mmol/L Potassium 3.9 (3.5-5.1) mmol/L Chloride 99 (98-107) mmol/L Carbon Dioxide 25.2 (21.0-32.0) mmol/L BUN 14 (7.0-18.0) mg/dL Creatinine 0.9 (0.8-1.3) mg/dL Est Cr Clr Drug Dosing 89.47 mL/min Estimated GFR (MDRD) > 60.0 ml/min Glucose 166 H (74-106) mg/dL Calcium 9.3 (8.5-10.1) mg/dL Med Orders - Current: Current Medications Bisacodyl (Dulcolax) 5 mg PO DAILY PRN PRN Reason: Constipation Dexamethasone (Dexamethasone) 8 mg IVPUSH Q8H [facility] Last Admin: 09/04/19 16:39 Dose: 8 mg Docusate Sodium (Colace) 100 mg PO BID PRN PRN Reason: Constipation Gabapentin (Neurontin) 300 mg PO TID [facility] Last Admin: 09/04/19 14:39 Dose: 300 mg Hydromorphone HCl (Dilaudid) 1 mg IVPUSH Q2H PRN PRN Reason: Pain (severe 7-10) Last Admin: 09/04/19 16:42 Dose: 1 mg Lidocaine (Lidoderm 5%) 700 mg TRDERM BEDTIME [facility] Magnesium Hydroxide (Milk Of Magnesia) 30 ml PO Q12H PRN PRN Reason: Constipation Ondansetron HCl (Zofran) 4 mg IVPUSH Q4H PRN PRN Reason: Nausea Orphenadrine Citrate (Norflex) 60 mg IV Q12H [facility] Last Admin: 09/04/19 08:49 Dose: 60 mg Oxycodone/Acetaminophen (Percocet 325-10 Mg) 1 tab PO Q4H PRN PRN Reason: Pain Last Admin: 09/04/19 16:40 Dose: 1 tab Pantoprazole Sodium (Protonix) 40 mg PO DAILY [facility] Last Admin: 09/04/19 08:49 Dose: 40 mg Oxycodone Hcl [ (Oxycontin] 15 Mg) 0 each PO BID [facility] Last Admin: 09/04/19 09:09 Dose: 15 each Rosuvastatin Calcium (Crestor) 20 mg PO BEDTIME [facility] Last Admin: 09/03/19 21:38 Dose: 20 mg Sertraline HCl (Zoloft) 100 mg PO DAILY [facility] Last Admin: 09/04/19 08:49 Dose: 100 mg Sodium Chloride (Saline Flush) 10 ml FLUSH ASDIRECTED PRN PRN Reason: Keep Vein Open Sodium Chloride (Saline Flush) 2.5 ml FLUSH ASDIRECTED PRN PRN Reason: Keep Vein Open Tamsulosin HCl (Flomax) 0.4 mg PO BEDTIME [facility] Last Admin: 09/03/19 21:38 Dose: 0.4 mg Warfarin Sodium (Coumadin Ask) 0 each PO DAILY@1400 [facility] Last Admin: 09/04/19 14:09 Dose: Not Given Warfarin Sodium (Coumadin) 3 mg PO DAILY@1400 [facility] Last Admin: 09/04/19 14:09 Dose: Not Given Discontinued Medications Dexamethasone (Dexamethasone) 4 mg IVPUSH Q12H [facility] Last Admin: 09/04/19 08:50 Dose: 4 mg Hydromorphone HCl (Dilaudid) 1 mg IVPUSH ONETIME ONE Stop: 09/02/19 16:52 Last Admin: 09/02/19 17:04 Dose: 1 mg Hydromorphone HCl (Dilaudid) 1 mg IVPUSH ONETIME ONE Stop: 09/02/19 18:13 Last Admin: 09/02/19 18:22 Dose: 1 mg Hydromorphone HCl (Dilaudid) 1 mg IVPUSH ONETIME ONE Stop: 09/02/19 21:42 Last Admin: 09/02/19 21:54 Dose: 1 mg Hydromorphone HCl (Dilaudid) 1 mg IVPUSH ONETIME ONE Stop: 09/04/19 03:29 Last Admin: 09/04/19 03:32 Dose: 1 mg Orphenadrine Citrate (Norflex) 60 mg IM NOW STA Stop: 09/02/19 20:08 Last Admin: 09/02/19 20:17 Dose: 60 mg Prednisone (Prednisone) 60 mg PO WITHBREAKFAST [place] Prednisone (Prednisone) 60 mg PO ONETIME ONE Stop: 09/04/19 14:30 Prednisone (Prednisone) 60 mg PO ONETIME ONE Stop: 09/03/19 15:01 Last Admin: 09/03/19 15:20 Dose: 60 mg Prednisone (Prednisone) 60 mg PO WITHBREAKFAST [place] Last Admin: 09/04/19 07:55 Dose: 60 mg Tizanidine HCl (Zanaflex) 2 mg PO DAILY PRN PRN Reason: Pain Tizanidine HCl (Zanaflex) 4 mg PO Q6H PRN PRN Reason: Muscle Spasm Last Admin: 09/04/19 04:33 Dose: 4 mg Warfarin Sodium (Coumadin) 3 mg PO 09/03/19@1400 [facility] Stop: 09/03/19 14:01 Last Admin: 09/03/19 13:34 Dose: 3 mg - My Orders Last 24 Hours: My Active Orders 09/04/19 04:32 Communication Order [RC] STAT 09/04/19 21:00 Lidocaine 5% [Lidoderm 5%] 700 mg TRDERM BEDTIME
--- NOTE | 2019-09-04 11:57 | CR ---
Left hip: AP and frog-leg lateral views left hip were obtained. Comparison: No prior hip exam. Partially visualized lumbar spine surgery is noted. Mild joint space narrowing is seen within the left hip. No fracture or other bony abnormality is seen. Impression: 1. Mild joint space narrowing within the left hip. 2. Previous lumbar spine surgery. Diagnostic code #2 MTDD
[2019-09-04] MEDS ORDERED: predniSONE 20 MG Tab PO ONE (14:29)
[2019-09-04] MEDS: Dexamethasone 4 MG/ML SDV IVPUSH SCH (16:39)
[2019-09-04] MEDS: Rosuvastatin 10 MG Tab PO SCH (20:23)
[2019-09-04] MEDS: Tamsulosin 0.4 MG Cap.ER PO SCH (20:23)
[2019-09-04] MEDS ORDERED: Lidocaine 5% 700 MG Patch TRDERM SCH (21:00)
[2019-09-05] MEDS: HYDROmorphone 1 MG/ML Syringe IVPUSH PRN ×5 (00:06→13:56)
[2019-09-05] MEDS: Dexamethasone 4 MG/ML SDV IVPUSH SCH ×3 (00:10→15:27)
[2019-09-05] MEDS: Gabapentin 300 MG Cap PO SCH ×2 (06:05→13:40)
[2019-09-05] MEDS: Acetaminophen/oxyCODONE 325-10 MG Tab PO PRN ×2 (06:05→10:08)
[2019-09-05 06:39] LABS: BLOOD UREA NITROGEN,BUN 18 mg/dL (7.0-18.0); CARBON DIOXIDE,CO2 29.5 mmol/L (21.0-32.0); CHLORIDE,CL 99 mmol/L (98-107); GLUCOSE RANDOM 153 mg/dL (74-106); POTASSIUM,K 4.2 mmol/L (3.5-5.1); SODIUM,NA 137 mmol/L (136-148)
[2019-09-05] MEDS: OXYCODONE HCL 15 MG PO SCH (08:46)
[2019-09-05] MEDS: Pantoprazole 40 MG Tab.CR PO SCH (08:47)
[2019-09-05] MEDS: Sertraline 100 MG Tab PO SCH (08:47)
[2019-09-05 13:27] VITALS: PULSE 70
[2019-09-05] MEDS ORDERED: LORazepam 1 MG Tab PO ONE (14:00)
[2019-09-05] MEDS ORDERED: Cyclobenzaprine 10 MG Tab PO ONE (14:39)
[2019-09-05] MEDS ORDERED: Rocuronium 100 MG/10 ML Syringe ONE (14:58)
[2019-09-05] MEDS ORDERED: Propofol 200 MG/20 ML SDV ONE (14:58)
--- NOTE | 2019-09-05 15:26 | PCM.PRNOTE ---
- Free Text/Narrative Note: Anes Note I was called for emergency intubation for patient who is about to be transferred. This patient is in intractable pain, and the attedning physician has ordered this intubation. He is in good general health, and had a full meal several hours ago. Dentition is intact. RSI intubation was performed with 200 mg propofol and 100 mg anectine. Intubation very quickly and easily using video laryngoscope with #3 blade, 8.0 ET tube placed with ease, and secured at 23 cm at teeth. BBS checked and equal. VS stable. No desaturation during intubation. 50 mg zemuron was then administered. A continuous propofol infusion was then started by Flight Nurse Team. Nona well. Time with patient [id number] Samuel Sal CRNA
[2019-09-05] MEDS ORDERED: fentaNYL 100 MCG/2 ML SDV IVPUSH PRN (15:47)
--- NOTE | 2019-09-05 16:11 | CR ---
HISTORY: Intubation TECHNIQUE: One view chest. COMPARISON: 01/14/2017 FINDINGS: Prior sternotomy and aortic valve replacement. Endotracheal tube terminates approximately 4.5 cm above the amrita. There is increased opacity within the left lateral costophrenic angle region which may relate to infiltrate, atelectasis and/or small effusion. Right lung appears clear. There is no pneumothorax. IMPRESSION: 1. Increased opacity in the left lateral costophrenic angle region which may relate to infiltrate, atelectasis and/or small pleural effusion. 2. Endotracheal tube terminates 4.5 cm above the amrita. Dictated by Albert Cordon MD @ 09/05/2019 4:09:33 PM Dictated by: Albert Cordon MD @ 09/05/2019 16:09:46 (Electronically Signed)
[2019-09-05 16:53] VITALS: BP 114/68
--- NOTE | 2019-09-05 17:53 | PCM.DCSUM1 ---
Discharge Summary - Hospital Course Free Text/Narrative:: This 58 year old male with heart valve replacement and recent lumbar fusion of L2-3 in [place] 2 weeks ago presented to the ED with complaints of low back pain and numbness to R leg with pain to front of R thigh. n the ED labwork WNL. CT of lumbar preliminary reports reveals, "Posterior naa and pedicle screw hardware at L2-S1 with posterior bone graft. The right L2 screw extends through the pedicle and into the soft tissues lateral to the right side of the L2 vertebral body. No acute fracture. Soft tissue density dorsal to the hardware and also posteromedial to bone donor site on right posterior iliac wing may represent post-operative edema/hemorrhage/granulation tissue but infection cannot be excluded. No air within the soft tissues. No bone erosions." ED provider contacted PA in [place], who recommended continued steroid taper and pain control. He was admitted for pain control. Patients pain was getting increasingly hard to manage. We reached out to the his neuro-surgeon who mentioned that patient did have significant blood loss during his surgery due to him being on AC few days before procedure so he was concerned if there was a fluid collection or clot compressing the cord. Urgent MRI was recommended, but due to the unavailability of MRI over weekends in our facility, Decision was made to transfer the patient to [facility]. [facility] pain worsened and his legs went into severe spasm. Patient was in agonizing pain and was deemed not safe for transfer unless he is sedated. I discussed this change in clinical condition with his surgeon over at [facility] and he recommend immediate tranafer to a higher level of care instead to their facility. Patient became increasingly diaphoretic, tachycardiac, hypotensive. Ketamine and versed were tried for sedation but patient didnt respond so decision was made to sedate with propofol nd intubate for airway protection. Transfer attempts were tried at multiple hospitals for next several hours while patient was managed in ICU. After several attempts, Patient was eventfully accepted by Dr Herrera at [facility]. Patient was airlifted to [place] and transferred out - Discharge Data Discharge Date: 09/05/19 Discharge Disposition: Home, Self-Care 01 Condition: Good - Referral to Home Health Primary Care Physician: Duarte Gonzalez MD - Discharge Diagnosis/Problem(s) (1) Hx of artificial heart valve replacement Status: Acute (2) Lumbar back pain SNOMED Code(s): 921120259 ICD Code: M54.5 - LOW BACK PAIN Status: Acute (3) Status post lumbar spinal fusion SNOMED Code(s): 26156363457373, 38613112, 94452190879524 ICD Code: Z98.1 - ARTHRODESIS STATUS Status: Acute - Patient Summary/Data Consults: Consultations 09/02/19 23:12 PT Evaluation and Treatment [CONS] Routine - Discharge Plan *PRESCRIPTION DRUG MONITORING PROGRAM REVIEWED*: Not Applicable *COPY OF PRESCRIPTION DRUG MONITORING REPORT IN PATIENT BETY: Not Applicable Home Medications: Home Meds Aspirin [Halfprin] 81 mg PO DAILY 01/14/17 [History] Omeprazole 20 mg PO BIDAC 01/14/17 [History] Sertraline HCl 100 mg PO DAILY 01/14/17 [History] Tamsulosin [Flomax] 0.4 mg PO BEDTIME 01/14/17 [History] Warfarin [Coumadin] 3 mg PO DAILY 01/14/17 [History] oxyCODONE HCl [Oxycontin] 15 mg PO BID 01/14/17 [History] tiZANidine [Zanaflex] 4 mg PO Q6HR PRN 01/14/17 [History] Aspirin/Acetaminophen/Caffeine [Mone Migraine Formula Caplet] 1 each PO DAILY PRN 01/24/17 [History] Cholecalciferol (Vitamin D3) [Vitamin D3] 5,000 unit PO DAILY 01/24/17 [History] oxyCODONE HCl/Acetaminophen [Endocet 10-325 mg Tablet] 1 each PO Q4H PRN [History] Gabapentin [Neurontin] 300 mg PO TID 09/02/19 [History] Ibuprofen 800 mg PO DAILY PRN 09/02/19 [History] Inulin/Chromium Picolinate [Fiber Gummies] 2 tab.chew PO BID 09/02/19 [History] Multivitamin [Multiple Vitamins] 1 each PO DAILY 09/02/19 [History] Rosuvastatin Calcium 20 mg PO BEDTIME 09/02/19 [History] Patient Handouts: Chronic Back Pain, [id number] Referrals: [facility] [Outside] Duarte Gonzalez MD [Primary Care Provider] - 09/21/19 2:00 pm - Discharge Summary/Plan Comment DC Time >30 min.: Yes Discharge Summary/Plan Comment: This 58 year old male with heart valve replacement and recent lumbar fusion of L2-3 in [place] 2 weeks ago presented to the ED with complaints of low back pain and numbness to R leg with pain to front of R thigh. n the ED labwork WNL. CT of lumbar preliminary reports reveals, "Posterior naa and pedicle screw hardware at L2-S1 with posterior bone graft. The right L2 screw extends through the pedicle and into the soft tissues lateral to the right side of the L2 vertebral body. No acute fracture. Soft tissue density dorsal to the hardware and also posteromedial to bone donor site on right posterior iliac wing may represent post-operative edema/hemorrhage/granulation tissue but infection cannot be excluded. No air within the soft tissues. No bone erosions." ED provider contacted GAV[facility] in [place], who recommended continued steroid taper and pain control. He was admitted for pain control. Patients pain was getting increasingly hard to manage. We reached out to the surgeon who mentioned that patient did have significant blood loss during his surgery due to him being on AC few days before procedure so he was concerned if there was a fluid collection or clot compressing the cord. Urgent MRI was recommended, but due to the unavailability of MRI over weekends in our facility, Decision was made to transfer the patient to [facility]. During the process of mobilization/transfer to stretcher patients pain worsened and his egs went into severe spasm. Patient was in agonizing pain and was deemed not safe for transfer unless he is sedated. I discussed this change in clinical condition with his surgeon over at [facility] and he recommended immediate transfer to a higher level of care instead to their facility. Patient became increasingly diaphoretic, tachycardiac, hypotensive. Ketamine and versed were tried for sedation but patient didnt respond so decision was made to sedate with propofol and intubate for airway protection. Transfer attempts were tried at multiple hospitals for next several hours while patient was managed in ICU. Patient was eventually accepted by Dr Herrera at [facility]. Patient was airlifted to [place] and transferred out - General Info Admission Dx/Problem (Free Text: Admission Diagnosis/Problem Admission Diagnosis/Problem Lumbar back pain with radiculopathy affecting right lower extremity Subjective Update: c/o Increasing numbness of right anterior leg, very restless - Review of Systems General: Denies: Fever, Malaise, Chills Pulmonary: Denies: Cough, Sputum Cardiovascular: Denies: PND, Edema, Lightheadedness Gastrointestinal: Denies: Abdominal Pain, Constipation Genitourinary: Denies: Dysuria, Frequency - Patient Data Vitals - Most Recent: Last Vital Signs Temp 36.3 C 09/05/19 16:00 Pulse 70 09/05/19 11:00 Resp 12 09/05/19 16:00 BP 114/68 09/05/19 16:00 Pulse Ox 95 09/05/19 11:00 Weight - Most Recent: 90.718 kg I&O - Last 24 hours: Intake & Output 09/05/19 09/05/19 09/05/19 06:59 14:59 22:59 Intake Total 840 600 Output Total 900 350 Balance -60 250 Lab Results - Last 24 hrs: Laboratory Results - last 24 hr 09/05/19 09/05/19 09/05/19 Range/Units 05:43 05:43 05:43 WBC 11.99 H (4.0-11.0) K/uL RBC 2.50 L (4.50-5.90) M/uL Hgb 7.7 L (13.0-17.0) g/dL Hct 24.7 L (38.0-50.0) % MCV 98.8 H (80.0-98.0) fL MCH 30.8 (27.0-32.0) pg MCHC 31.2 (31.0-37.0) g/dL RDW Std Deviation 60.4 (28.0-62.0) fl RDW Coeff of [place] 17 H (11.0-15.0) % Plt Count 737 H (150-400) K/uL MPV 8.80 (7.40-12.00) fL Neut % (Auto) 88.2 H (48.0-80.0) % Lymph % (Auto) 5.9 L (16.0-40.0) % [place] % (Auto) 5.8 (0.0-15.0) % Eos % (Auto) 0.0 (0.0-7.0) % Baso % (Auto) 0.1 (0.0-1.5) % Neut # (Auto) 10.6 H (1.4-5.7) K/uL Lymph # (Auto) 0.7 (0.6-2.4) K/uL [place] # (Auto) 0.7 (0.0-0.8) K/uL Eos # (Auto) 0.0 (0.0-0.7) K/uL Baso # (Auto) 0.0 (0.0-0.1) K/uL Nucleated RBC % 0.0 /100WBC Nucleated RBCs # 0 K/uL INR 3.73 ABG pH (7.35-7.45) ABG pCO2 (35-45) mmHG ABG pO2 (75-100) mmHG ABG HCO3 (22-26) mEq/L ABG Base Excess (-2.0-2.0) Sodium 137 (136-148) mmol/L Potassium 4.2 (3.5-5.1) mmol/L Chloride 99 (98-107) mmol/L Carbon Dioxide 29.5 (21.0-32.0) mmol/L BUN 18 (7.0-18.0) mg/dL Creatinine 0.9 (0.8-1.3) mg/dL Est Cr Clr Drug Dosing 89.47 mL/min Estimated GFR (MDRD) > 60.0 ml/min Glucose 153 H (74-106) mg/dL Calcium 9.3 (8.5-10.1) mg/dL 09/05/19 Range/Units 17:20 WBC (4.0-11.0) K/uL RBC (4.50-5.90) M/uL Hgb (13.0-17.0) g/dL Hct (38.0-50.0) % MCV (80.0-98.0) fL MCH (27.0-32.0) pg MCHC (31.0-37.0) g/dL RDW Std Deviation (28.0-62.0) fl RDW Coeff of [place] (11.0-15.0) % Plt Count (150-400) K/uL MPV (7.40-12.00) fL Neut % (Auto) (48.0-80.0) % Lymph % (Auto) (16.0-40.0) % [place] % (Auto) (0.0-15.0) % Eos % (Auto) (0.0-7.0) % Baso % (Auto) (0.0-1.5) % Neut # (Auto) (1.4-5.7) K/uL Lymph # (Auto) (0.6-2.4) K/uL [place] # (Auto) (0.0-0.8) K/uL Eos # (Auto) (0.0-0.7) K/uL Baso # (Auto) (0.0-0.1) K/uL Nucleated RBC % /100WBC Nucleated RBCs # K/uL INR ABG pH 7.448 (7.35-7.45) ABG pCO2 39 (35-45) mmHG ABG pO2 169 H (75-100) mmHG ABG HCO3 27 H (22-26) mEq/L ABG Base Excess 2.8 H (-2.0-2.0) Sodium (136-148) mmol/L Potassium (3.5-5.1) mmol/L Chloride (98-107) mmol/L Carbon Dioxide (21.0-32.0) mmol/L BUN (7.0-18.0) mg/dL Creatinine (0.8-1.3) mg/dL Est Cr Clr Drug Dosing mL/min Estimated GFR (MDRD) ml/min Glucose (74-106) mg/dL Calcium (8.5-10.1) mg/dL Med Orders - Current: Current Medications Bisacodyl (Dulcolax) 5 mg PO DAILY PRN PRN Reason: Constipation Dexamethasone (Dexamethasone) 8 mg IVPUSH Q8H [place] Last Admin: 09/05/19 15:27 Dose: Not Given Docusate Sodium (Colace) 100 mg PO BID PRN PRN Reason: Constipation Fentanyl (Sublimaze) 50 mcg IVPUSH Q5M PRN PRN Reason: Pain Gabapentin (Neurontin) 300 mg PO TID [place] Last Admin: 09/05/19 13:40 Dose: 300 mg Hydromorphone HCl (Dilaudid) 1 mg IVPUSH Q2H PRN PRN Reason: Pain (severe 7-10) Last Admin: 09/05/19 13:56 Dose: 1 mg Propofol (Diprivan 100 Ml) 100 mls @ 2.722 mls/hr IV TITRATE [place]; Protocol Lidocaine (Lidoderm 5%) 700 mg TRDERM BEDTIME [facility] Last Admin: 09/04/19 22:22 Dose: 700 mg Magnesium Hydroxide (Milk Of Magnesia) 30 ml PO Q12H PRN PRN Reason: Constipation Ondansetron HCl (Zofran) 4 mg IVPUSH Q4H PRN PRN Reason: Nausea Orphenadrine Citrate (Norflex) 60 mg IV Q12H [facility] Last Admin: 09/05/19 07:48 Dose: 60 mg Oxycodone/Acetaminophen (Percocet 325-10 Mg) 1 tab PO Q4H PRN PRN Reason: Pain Last Admin: 09/05/19 10:08 Dose: 1 tab Pantoprazole Sodium (Protonix) 40 mg PO DAILY [facility] Last Admin: 09/05/19 08:47 Dose: 40 mg Oxycodone Hcl [ (Oxycontin] 15 Mg) 0 each PO BID [facility] Last Admin: 09/05/19 08:46 Dose: 15 each Rosuvastatin Calcium (Crestor) 20 mg PO BEDTIME [facility] Last Admin: 09/04/19 20:23 Dose: 20 mg Sertraline HCl (Zoloft) 100 mg PO DAILY [facility] Last Admin: 09/05/19 08:47 Dose: 100 mg Sodium Chloride (Saline Flush) 10 ml FLUSH ASDIRECTED PRN PRN Reason: Keep Vein Open Sodium Chloride (Saline Flush) 2.5 ml FLUSH ASDIRECTED PRN PRN Reason: Keep Vein Open Tamsulosin HCl (Flomax) 0.4 mg PO BEDTIME [facility] Last Admin: 09/04/19 20:23 Dose: 0.4 mg Warfarin Sodium (Coumadin Ask) 0 each PO DAILY@1400 [facility] Last Admin: 09/05/19 13:30 Dose: Not Given Discontinued Medications Cyclobenzaprine HCl (Flexeril) 10 mg PO ONETIME ONE Stop: 09/05/19 14:40 Last Admin: 09/05/19 15:18 Dose: Not Given Dexamethasone (Dexamethasone) 4 mg IVPUSH Q12H [facility] Last Admin: 09/04/19 08:50 Dose: 4 mg Hydromorphone HCl (Dilaudid) 1 mg IVPUSH ONETIME ONE Stop: 09/02/19 16:52 Last Admin: 09/02/19 17:04 Dose: 1 mg Hydromorphone HCl (Dilaudid) 1 mg IVPUSH ONETIME ONE Stop: 09/02/19 18:13 Last Admin: 09/02/19 18:22 Dose: 1 mg Hydromorphone HCl (Dilaudid) 1 mg IVPUSH ONETIME ONE Stop: 09/02/19 21:42 Last Admin: 09/02/19 21:54 Dose: 1 mg Hydromorphone HCl (Dilaudid) 1 mg IVPUSH ONETIME ONE Stop: 09/04/19 03:29 Last Admin: 09/04/19 03:32 Dose: 1 mg Lorazepam (Ativan) 1 mg PO ONETIME ONE Stop: 09/05/19 14:01 Last Admin: 09/05/19 15:17 Dose: Not Given Orphenadrine Citrate (Norflex) 60 mg IM NOW STA Stop: 09/02/19 20:08 Last Admin: 09/02/19 20:17 Dose: 60 mg Prednisone (Prednisone) 60 mg PO WITHBREAKFAST [place] Prednisone (Prednisone) 60 mg PO ONETIME ONE Stop: 09/04/19 14:30 Prednisone (Prednisone) 60 mg PO ONETIME ONE Stop: 09/03/19 15:01 Last Admin: 09/03/19 15:20 Dose: 60 mg Prednisone (Prednisone) 60 mg PO WITHBREAKFAST [place] Last Admin: 09/04/19 07:55 Dose: 60 mg Propofol (Diprivan 20 Ml) Confirm Administered Dose 200 mg .ROUTE .STK-MED ONE Stop: 09/05/19 14:59 Rocuronium [place] (Zemuron) Confirm Administered Dose 100 mg .ROUTE .STK-MED ONE Stop: 09/05/19 14:59 Succinylcholine Chloride (Succinylcholine Chloride) Confirm Administered Dose 200 mg .ROUTE .STK-MED ONE Stop: 09/05/19 14:59 Tizanidine HCl (Zanaflex) 2 mg PO DAILY PRN PRN Reason: Pain Tizanidine HCl (Zanaflex) 4 mg PO Q6H PRN PRN Reason: Muscle Spasm Last Admin: 09/04/19 04:33 Dose: 4 mg Warfarin Sodium (Coumadin) 3 mg PO 09/03/19@1400 [place] Stop: 09/03/19 14:01 Last Admin: 09/03/19 13:34 Dose: 3 mg Warfarin Sodium (Coumadin) 3 mg PO DAILY@1400 [place] Last Admin: 09/04/19 14:09 Dose: Not Given - Exam General: Reports: Severe Distress Neck: Reports: Supple Lungs: Reports: Clear to Auscultation, Normal Respiratory Effort Cardiovascular: Reports: Tachycardia GI/Abdominal Exam: Normal Bowel Sounds, Soft Back Exam: Reports: Decreased Range of Motion, Muscle Spasm, Paraspinal Tenderness, Vertebral Tenderness Extremities: Leg Pain, Limited Range of Motion Neurological: Reports: Normal Speech. Denies: Normal Gait, Normal Tone ( increased tone, spastic), Sensation Intact (numbness in right anterior thigh and foot)
--- NOTE | 2019-09-05 19:28 | PCM.SN ---
- Free Text/Narrative Note: Patient was in the process of getting transferred to [facility] neurosurgery center under care of Dr Toledo, as he was in need of Urgent MRI due to his worsening pain and numbness. During transport process in his room, patient developed extreme agonizing pain and continuos severe muscle spasm in his both lower extremities. Patient received ketamine and versed for pain, but didn't improve his pain. Staff was unable to transfer patient from hospital bed to stretcher due to extreme pain. Eventually patient became diaphoretic, hypotensive, tachycardiac to 180s, and tachypneic along with continuous lower extremities spasms. Patient denied any chest pain but was in excruciating back pain and showed signs of possible neurogenic shock secondary to extreme pain vs possible spinal cord involvement causing autonomic dysfunction. Air transport crew stated patient isnt safe for transport if he is fully conscious due to the level of pain he was experiencing so finally decision was made to sedate him so he could be transferred out safely. Patient had to be intubated due to being sedated to protect his airway and transferred to ICU until transfer could be finalized. Vitals improved after patient was sedated, Family was at bedside. Dr Toledo stated that his medical center doesn't have resources to take care of intubated patient and agreed that patient needs to be sedated and intubated for a safe transfer to another higher level of facility. I called and reached out to several hospitals over next several hours, but was denied acceptance given the fact that patient had recent neurosurgery else where. Patient was eventually accepted by Dr Herrera, neurosurgeon at [facility] for further care and transferred out via [facility].
== END 2019-09-05 18:30 | DRG 347 ==
LOC: MW.ED 16:36 → MW.MS 20:47 → OBSVTOIN 09-04 16:39 → MW.ICU 09-05 16:24
PROVIDERS: ADMIT Internal Medicine; ATTEND Internal Medicine
PROC: 0BH17EZ Insertion of Endotracheal Airway into Trachea, Via Natural or Artificial Opening (ICD-10-PCS; principal; 2019-09-05)
DX: M54.16 Radiculopathy, lumbar region (principal); G89.29 Other chronic pain; K21.9 Gastro-esophageal reflux disease without esophagitis; I95.9 Hypotension, unspecified; R61 Generalized hyperhidrosis; R00.0 Tachycardia, unspecified; Z98.1 Arthrodesis status; Z95.2 Presence of prosthetic heart valve; Z79.82 Long term (current) use of aspirin; Z79.899 Other long term (current) drug therapy; Z95.1 Presence of aortocoronary bypass graft; Z90.89 Acquired absence of other organs; Z87.891 Personal history of nicotine dependence; Z79.01 Long term (current) use of anticoagulants
CPT/HCPCS: 36415; 36600; 51702; 71045; 71045-26; 72131; 72131-26; 73521; 73521-26; 80048; 80053; 81003; 82803; 85025; 85610; 85652; 86140; 94002; 96372; 96374; 96375; 96376; 97161-GP; 97530-GP; 99284-25; 99285; A9270-GY; G0378; J0330; J1100; J1170; J2360; J2704; J3010

== ENCOUNTER 2025-02-25 10:51 | Emergency (ER) | payer BC, MEDICARE ==
[2025-02-25] MEDS ORDERED: Sodium Chloride 0.9% 10 ML Syringe FLUSH PRN (11:03)
[2025-02-25] MEDS ORDERED: Sodium Chloride 0.9% 2.5 ML Syringe FLUSH PRN (11:03)
[2025-02-25 11:13] LABS: BASOPHILS ABSOLUTE AUTO 0.02 K/uL (0.00-0.20); BASOPHILS PERCENT AUTO 0.3 % (0.0-1.0); EOSINOPHILS ABSOLUTE AUTO 0.31 K/uL (0.00-0.45); EOSINOPHILS PERCENT AUTO 4.9 % (0.0-6.0); HEMATOCRIT 34.2 % (42.0-52.0); HEMOGLOBIN 11.8 g/dL (14.0-18.0); IMMATURE GRAN ABSOLUTE AUTO 0.03 K/uL (0.00-0.05); IMMATURE GRAN PERCENT AUTO 0.5 % (0.0-0.4); LYMPHOCYTES ABSOLUTE AUTO 1.48 K/uL (1.00-4.80); LYMPHOCYTES PERCENT AUTO 23.5 % (24.0-44.0); MEAN CORPUSCULAR HEMOGLOBIN 31.9 pg (28.0-32.0); MEAN CORPUSCULAR HGB CONC 34.5 g/dL (32.0-36.0); MEAN CORPUSCULAR VOLUME 92.4 fL (83.0-99.0); MEAN PLATELET VOLUME 9.5 fL (9.4-12.4); MONOCYTES ABSOLUTE AUTO 0.54 K/uL (0.00-0.80); MONOCYTES PERCENT AUTO 8.6 % (0.0-8.0); NEUTROPHILS ABSOLUTE AUTO 3.91 K/uL (1.80-7.70); NEUTROPHILS PERCENT AUTO 62.2 % (41.0-71.0); PLATELET COUNT,PLT 209 K/uL (150-400); WHITE BLOOD CELL COUNT,WBC 6.29 K/uL (3.9-11.3)
[2025-02-25 11:26] LABS: INR 2.63 (0.86-1.11)
[2025-02-25 11:42] LABS: CARBON DIOXIDE,CO2 28.7 mmol/L (21.0-32.0); POTASSIUM,K 3.7 mmol/L (3.5-5.1)
[2025-02-25 11:43] LABS: A/G RATIO 1.5 (0.9-1.6); ALBUMIN 3.9 g/dL (3.4-5.0); BILIRUBIN TOTAL 0.4 mg/dL (0.2-1.0); CALCIUM 8.9 mg/dL (8.5-10.1); CREATININE 1.2 mg/dL (0.8-1.3); EST CRCL DRUG DOSING (CG) 62.19 mL/min; MAGNESIUM 2.1 mg/dL (1.8-2.4); PROTEIN TOTAL,TP 6.5 g/dL (6.4-8.2)
[2025-02-25] MEDS: Iopamidol 755 MG/ML 500 ML Multipack Bottle IVPUSH STA (13:01)
[2025-02-25 15:44] VITALS: BP 144/58; PULSE 50
== END 2025-02-25 15:44 | disposition home or self-care (01) ==
LOC: MW.ED 10:51
DX: R07.9 Chest pain, unspecified (principal); Z75.3 Unavailability and inaccessibility of health-care facilities; Z79.82 Long term (current) use of aspirin; Z79.01 Long term (current) use of anticoagulants; Z79.899 Other long term (current) drug therapy
CPT/HCPCS: 36415; 71045; 71275; 80053; 83735; 83880; 84484; 85025; 85610; 93005; 99285; Q9967; 99283